=== PATIENT | female | born 1975 | race Caucasian/White ===

== ENCOUNTER 2021-02-16 18:22 | Emergency (ER) | payer OTHER, SELFPAY ==
--- NOTE | 2021-02-16 18:34 | ED.LOWEXIN ---
HPI - Extremity Injury (Lower) General Chief Complaint: Extremity Problem,Nontraumatic Stated Complaint: Left foot Swelling Time Seen by Provider: 02/16/21 18:34 Source: patient and RN notes reviewed Mode of arrival: ambulatory Limitations: no limitations History of Present Illness HPI Narrative: 45-year-old female presents to the [facility] with pain, swelling and redness to the dorsal and lateral aspect of her foot since Tuesday. Has recently been treated for gout. Recently had electrolyte imbalances, hyponatremia. Is currently being treated for A. fib and is due to have a procedure done in the next 2 weeks. States that she indication would like her foot fixed. Concern for infection, blood clot, edema. Had requested blood work to be done, explained we do not do blood work here. Related Data Home Medications Medication Instructions Recorded Confirmed sotalol 80 mg PO BID 06/21/19 06/21/19 Xarelto 20 mg PO HS 06/22/19 06/22/19 cyanocobalamin (vitamin B-12) 1,000 mcg SUBCUT DAILY 02/16/21 02/16/21 folic acid 1 mg PO DAILY 02/16/21 02/16/21 losartan 25 mg PO DAILY 02/16/21 02/16/21 metoprolol tartrate 50 mg PO DAILY 02/16/21 02/16/21 Allergies Allergy/AdvReac Type Severity Reaction Status Date / Time lisinopril Allergy Mild Other Verified 02/16/21 18:48 nifedipine Allergy Mild Hives / Verified 02/16/21 18:48 Red Face hydromorphone Allergy Unknown Hives / Verified 02/16/21 18:48 Red Face Review of Systems Review of Systems: All systems reviewed & are unremarkable except as noted in HPI and below Constitutional: Constitutional: Reports no additional constitutional complaints, Denies chills and Denies fever(s) Eyes: Eyes: Reports no additional eye complaints ENT: Reports system reviewed and no additional complaints, except as documented Cardiovascular: Cardiovascular: Reports no additional cardiovascular complaints and Denies chest pain Respiratory: Respiratory: Reports no additional respiratory complaints, Denies cough and Denies dyspnea Gastrointestinal: Gastrointestinal: Reports no additional gastrointestinal complaints, Denies nausea and Denies vomiting Musculoskeletal: Musculoskeletal: Reports joint swelling (Left lateral ankle extending into the lateral and dorsal foot) Integumentary/Breasts: Skin/Breast: Reports as per HPI, Denies pruritus and Denies rash Comments: Redness with increased warmth left foot Neurologic: Reports system reviewed and no additional complaints, except as documented, Denies headache(s), Denies numbness and Denies weakness Psychiatric: Psychiatric: Reports no additional psychiatric complaints Allergic/Immunologic: Allergic/Immunologic: Reports no additional allergic/immunologic complaints PMFSH Past Medical History Medical History (Updated 02/16/21 @ 19:10 by Patrizia Nicolas) A-fib Gout Hyponatremia Social History Social History Gender identity (if verbalized by the patient): Female Comments At the time of my signature, I reviewed and agree with the nursing past medical, surgical, social, and family history. There is no relevant family history pertinent to the patient complaint. Exam Const: General: alert Nutritional Appearance: well nourished Orientation/consciousness: patient oriented x3 Limitations: no limitations Other: Anxious, HENMT: Head: normal to inspection Eyes: Pupils: Equal, round and reactive pupils present Neck: Neck: normal visual inspection, no lymphadenopathy and no meningeal signs Chest: Chest palpation & inspection: normal inspection of the chest Resp: Effort & Inspection: normal respiratory effort and no use of accessory muscles Auscultation: clear to auscultation bilaterally, no crackles, no rales, no rhonchi and no wheezes Cardio: Rate: tachycardic Back/Spine/Pelvis: Back: no CVA tenderness Skin: Other: Red, warmth lateral dorsal foot left Neuro: General: patient orie
[2021-02-16 18:35] VITALS: BP 129/90; PULSE 118; RESP 18; TEMP 37.6; O2SAT 99
== END 2021-02-16 19:10 | disposition short-term general hospital (02) ==
PROVIDERS: Emergency Provider Nurse Practitioner
DX: M79.672 Pain in left foot (principal); I48.91 Unspecified atrial fibrillation; M10.9 Gout, unspecified; Z79.01 Long term (current) use of anticoagulants
CPT/HCPCS: 99212; G0463

== ENCOUNTER 2021-02-16 19:38 | Inpatient (IN) | payer OTHER, SELFPAY ==
--- NOTE | ~2021-02-16 | XR_ITS ---
EXAMINATION: XR chest 2V EXAM DATE: 02/16/2021 20:23 INDICATION: Tachycardia, atrial fibrillation. Foot swelling. History of gout. TECHNIQUE: Frontal and lateral projections of the chest obtained and reviewed. There is no prior melisa dy for comparison. FINDINGS: The lungs are clear. There are no pleural effusions. The cardiomediastinal silhouette is within normal limits. There is no pneumothorax suspected. The bones and soft tissues are unremarkab le. There are cholecystectomy clips. IMPRESSION: No acute cardiopulmonary findings. Reviewed, dictated and finalized at location A.
--- NOTE | ~2021-02-16 | XR_ITS ---
EXAMINATION: XR foot LT min 3V EXAM DATE: 02/16/2021 21:57 INDICATION: Left foot pain, redness, swelling. History of gout. TECHNIQUE: Left foot dorsoplantar, lateral and oblique projections obtained and reviewed. There is n o prior study for comparison. FINDINGS: Left metatarsal bones unremarkable. Small inferior calcaneal spur. There is small erosio n at the base of the left 1st distal phalanx identified on an oblique projection, could be gout. Ther e may be some swelling of this toe, clinical correlation. There is also suspected to be diffuse dorsa l foot swelling, mostly dorsally and laterally. Small inferior calcaneal spur. There are no acute fr actures identified. IMPRESSION: 1. Possible left 1st distal phalangeal base gouty erosion. 2. Diffuse foot swelling dorsolaterally Reviewed, dictated and finalized at location A.
[2021-02-16 20:02] VITALS: BP 133/66; PULSE 137; RESP 30; TEMP 37.2; O2SAT 100
--- NOTE | 2021-02-16 20:10 | ECG_ITS ---
Measurements Intervals [place] Rate: 142 P: MD: 0 QRS: 14 QRSD: 80 T: 79 QT: 297 QTc: 457 Interpretive Statements ATRIAL FIBRILLATION WITH RAPID VENTRICULAR RESPONSE BORDERLINE R WAVE PROGRESSION, ANTERIOR LEADS BORDERLINE ST-T WAVE ABNORMALITY- HIGH LATERAL LEADS BASELINE ARTIFACT- I, II, III, AVL, AVF ABNORMAL ECG Electronically Signed On 02-16-2021 20:20:25 CDT by Gian Kowalski D.O.
[2021-02-16 20:26] LABS: Basophils Percent Auto 0.2 % (0.2-1.2); Eosinophils Absolute Auto 0.1 K/mm3 (0-0.3); Eosinophils Percent Auto 0.7 % (0-4.4); Hematocrit 36.3 % (37.0-47.0); Hemoglobin 11.9 g/dL (12.0-15.0); Immature Granulocyte Absolute 0.05 K/mm3 (0.00-0.031); Immature Granulocyte Percent A 0.4 % (0-0.5); Lymphocytes Absolute Auto 1.16 K/mm3 (0.9-3.2); Mean Corpuscular HGB Conc 32.8 g/dl (32-36); Mean Corpuscular Hemoglobin 35.3 pg (26-34); Mean Corpuscular Volume 107.7 fl (80-100); Mean Platelet Volume 10.1 fl (7.4-10.4); Monocytes Absolute Auto 0.6 K/mm3 (0.1-0.6); Monocytes Percent Auto 4.6 % (2.6-8.5); Neutrophils Percent Auto 85.1 % (45.5-73.1); Platelet Count Result 352 k/mm3 (150-375); Red Blood Count 3.37 M/mm3 (4.2-5.4); Red Cell Distribution Width 15.4 % (11.5-14.5)
[2021-02-16 20:35] LABS: Anion Gap 9 mmol/L (8-16); Blood Urea Nitrogen 14 mg/dL (7-17); Calcium 9.3 mg/dL (8.4-10.2); Carbon Dioxide 24 mmol/L (22-30); Chloride 106 mmol/L (98-107); Estimated CRCL calculation 73 ml/min; Estimated Glomerular Filt Rate > 60; Glucose 185 mg/dL (65-110); Potassium 4.2 mmol/L (3.4-5.0); Sodium 139 mmol/L (137-145)
[2021-02-16 20:36] LABS: INR 1.6; Prothrombin Time 19.1 Seconds (11.1-14.7)
[2021-02-16 20:37] LABS: Partial Thromboplastin Time 39.9 SECONDS (22.3-36.8)
[2021-02-16 20:46] LABS: Troponin I < 0.012 ng/mL (0.000-0.034)
[2021-02-16 21:29] VITALS: BP 124/98; PULSE 118; RESP 26; TEMP 38.2; O2SAT 100
--- NOTE | 2021-02-16 21:38 | ED.GENADULT ---
HPI - General Adult General Chief complaint: Extremity Injury, Lower Stated complaint: left leg pain Time Seen by Provider: 02/16/21 21:27 Source: patient History of Present Illness HPI narrative: Patient is a 45 y/o female complaining of left foot pain starting 2 days ago. She describes her pain as throbbing and rates it as 7/10 currently. She state that weight bearing aggravates her pain. She denies any trauma to her foot. She also developed fever today. She has history gout. She also has history of A fib and she is on Xarelto. Related Data Home Medications Medication Instructions Recorded Confirmed sotalol 80 mg PO BID 06/21/19 02/16/21 Xarelto 20 mg PO HS 06/22/19 02/16/21 cyanocobalamin (vitamin B-12) 1,000 mcg SUBCUT DAILY 02/16/21 02/16/21 folic acid 1 mg PO DAILY 02/16/21 02/16/21 losartan 25 mg PO DAILY 02/16/21 02/16/21 metoprolol tartrate 50 mg PO DAILY 02/16/21 02/16/21 Allergies Allergy/AdvReac Type Severity Reaction Status Date / Time lisinopril Allergy Mild Hives Verified 02/16/21 20:09 nifedipine Allergy Mild Hives / Verified 02/16/21 18:48 Red Face hydromorphone Allergy Unknown Hives / Verified 02/16/21 18:48 Red Face Review of Systems Constitutional: Constitutional: Denies chills, Denies fever(s), Denies headache(s) and Denies weakness Eyes: Eyes: Denies blurry vision ENT: Denies headache(s) and Denies neck pain Cardiovascular: Cardiovascular: Denies chest pain and Denies dyspnea Respiratory: Respiratory: Denies cough and Denies dyspnea Gastrointestinal: Gastrointestinal: Denies abdominal pain, Denies diarrhea, Denies nausea and Denies vomiting Genitourinary: Genitourinary: Denies hematuria and Denies dysuria Musculoskeletal: Musculoskeletal: Denies back pain, Denies neck pain and Reports other (left foot pain) Integumentary/Breasts: Skin/Breast: Reports erythema (left foot) Neurologic: Denies headache(s) and Denies weakness PMFSH Past Medical History Medical History A-fib Gout Hyponatremia Social History Social History Gender identity (if verbalized by the patient): Female Exam Const: General: no acute distress and well developed Orientation/consciousness: oriented to person, oriented to place, oriented to time and patient oriented x3 HENMT: Head: normocephalic Ears: external ears normal General nose exam: Normal external nose present Eyes: General: appearance normal, both eyes and all related structures Conjunctivae: conjunctivae normal Neck: Neck: normal visual inspection and full ROM Chest: Chest palpation & inspection: normal inspection of the chest and no tenderness Resp: Effort & Inspection: normal respiratory effort Auscultation: clear to auscultation bilaterally Cardio: Rate: tachycardic Rhythm: abnormal rhythm regularly irregular GI: GI Palp: No abdominal tenderness and Yes Soft to palpation Skin: General skin exam: normal color, turgor normal and erythema (left foot) Neuro: General: oriented to person, oriented to place, oriented to time and patient oriented x3 Cognition (Neuro): normal cognition Extrem: General: normal to inspection, full ROM and no pedal edema Left lower extremity: foot Details: tenderness, warmth and edema Psych: Appearance: grossly normal Mental Status: mental status grossly normal Affect: normal affect Course Consultations Consultation #1: Discussed with Dr. Balderrama, who agrees to admit. Date: 02/16/21 Time: 21:51 Vital Signs Vital signs: Vital Signs Temperature 37.2 C 02/16/21 20:02 Pulse Rate 137 H 02/16/21 20:02 Respiratory Rate 30 H 02/16/21 20:02 Blood Pressure 133/66 02/16/21 20:02 Pulse Oximetry 100 02/16/21 20:02 Temperature 38.2 C H 02/16/21 21:29 Pulse Rate 125 H 02/16/21 23:36 Respiratory Rate 26 H 02/16/21 21:29 Blood Pressure 129/80 02/16/21 23:36 Pulse Oximetry 1
[2021-02-16] MEDS: KETOROLAC 30 MG/ML VIAL (*BKC) IV PUSH (22:15)
[2021-02-16] MEDS: dilTIAZem HCl INJ 25 MG/5 ML VIAL 10 MG IV PUSH (22:17)
[2021-02-16 22:20] LABS: Erythrocyte Sedimentation Rate 69 mm/hr (0-20)
[2021-02-16 22:28] LABS: Lactic Acid Reflex 0.9 mmol/L (0.7-2.1)
[2021-02-16] MEDS: ACETAMINOPHEN 325 MG TABLET 650 MG PO (22:30)
[2021-02-16] MEDS: COLCHICINE 0.6 MG TABLET 1.2 MG PO (22:31)
[2021-02-16 22:32] LABS: CRP 5.2 mg/dL (<1.0)
[2021-02-16 23:00] LABS: Uric Acid 8.3 mg/dL (2.5-7.5)
[2021-02-16 23:36] VITALS: BP 129/80; PULSE 125
[2021-02-16 23:51] LABS: Troponin I < 0.012 ng/mL (0.000-0.034)
[2021-02-17] VITALS (17 sets, daily range): BP systolic 98–114; BP diastolic 63–83; PULSE 72–128; RESP 16–18; TEMP 35.5–37.2; O2SAT 97–100; BMI 28.9
--- NOTE | 2021-02-17 | ECHO_ITS ---
Patient Info Name: Emma Andino Age: 45 years : 1975 Gender: Female Ht: 70 in Wt: 201 lbs BSA: 2.14 m2 HR: 87 bpm BP: 98 / 66 mmHg Heart Rhythm: Atrial Fibrillation Technical Quality: Good Exam Date: 02/17/2021 1:34 PM Exam Location: [facility] Patient Status: Outpatient Admit Date: 02/16/2021 Staff Ordering Physician: Eldon Balderrama MD Compliance Representative Dealer: Jerzy Castañeda, HARRY, RT Attending Provider: Eldon Balderrama MD Referring Physician: Conchis RUIZ; Exam Type: CA echo doppler color flow Study Info Indications I48.1 - Persistent atrial fibrillation Complete two-dimensional, color flow and Doppler transthoracic echocardiogram is performed. Summary 1. Complete two-dimensional, color flow and Doppler transthoracic echocardiogram is performed. 2. Left ventricular chamber dimension is normal. 3. Left ventricular systolic function is normal, estimated at >70%. 4. There is moderately increased left ventricular wall thickness. 5. Left atrial chamber dimension is moderately enlarged. 6. Right atrial chamber dimension is moderately enlarged. 7. There is mild tricuspid valve regurgitation. 8. Mild pulmonary hypertension, estimated pulmonary arterial systolic pressure is 37 mmHg. 9. Dilated inferior vena cava with <50% collapse upon inspiration consistent with elevated right atrial pressure, 10 mmHg. Left Ventricle Left ventricular chamber dimension is normal. Left ventricular systolic function is normal, estimated at >70%. There is moderately increased left ventricular wall thickness. The left ventricular diastolic function is indeterminate. Global longitudinal strain is mildly elevated at -15 %. Right Ventricle Right ventricular chamber dimension is normal. Right ventricular systolic function is normal. Left Atria Left atrial chamber dimension is moderately enlarged. Right Atria Right atrial chamber dimension is moderately enlarged. Aortic Valve The aortic valve is trileaflet. There is no aortic valve stenosis. There is trace aortic valve regurgitation. Pulmonic Valve The pulmonic valve is normal. There is trace pulmonic regurgitation. Mitral Valve The mitral valve has normal leaflets. There is mild mitral valve regurgitation. Tricuspid Valve The tricuspid valve leaflets are normal. There is mild tricuspid valve regurgitation. Mild pulmonary hypertension, estimated pulmonary arterial systolic pressure is 37 mmHg. Pericardium/Pleural The pericardium appears normal. There is trivial pericardial effusion. Inferior Vena Cava Dilated inferior vena cava with <50% collapse upon inspiration consistent with elevated right atrial pressure, 10 mmHg. Aorta The aortic root size at the sinus of Valsalva is normal. Left Ventricular Outflow Tract Name Value Normal LVOT 2D LVOT Diameter 2.1 cm LVOT Doppler LVOT Peak Gradient 4 mmHg LVOT Mean Gradient 2 mmHg LVOT VTI 19 cm LVOT VTI/AV VTI Ratio 0.7 LVOT Stroke Volume 67
--- NOTE | 2021-02-17 00:02 | PC.NURSE ---
Report received from YSED Cristina.
--- NOTE | 2021-02-17 00:42 | ADMGEN ---
This patient, Emma Andino, was admitted to IMU Room 203-01 02-17-21 at 0028. Patient/family oriented to hospital policies and general routines including ID bracelet, bed and alarms, visiting hours, pain management, procedures, bathroom and other care routines, personal items, smoking policy, room service/diet, and visiting hours. Information on how to activate the Rapid Response Team has been discussed. Patient/Family are encouraged to report perceived risks to care and to ask questions if they do not understand what they are told or what they should do.
--- NOTE | 2021-02-17 01:12 | PM.IMHP ---
H&P: HPI History of Present Illness Date/Time: 02/17/21 01:12 Chief Complaint: LEFT FOOT PAIN Narrative: THIS IS A 45-YEAR-OLD FEMALE WITH PAST MEDICAL HISTORY SIGNIFICANT FOR GOUT, ATRIAL FIBRILLATION. PATIENT PRESENTED TO THE EMERGENCY ROOM DUE TO REDNESS SWELLING AND PAIN OF THE LEFT FOOT A STATES THAT SHE HAD BEEN TREATED IN THE OUTPATIENT SETTING FOR TOE GOUT BUT NOW THE REDNESS AND SWELLING IS ON THE DORSUM OF HER FOOT WELL PAIN. SHE DENIES ANY TRAUMA TO THE FOOT SHE HAS HAD FEVERS BUT NO CHILLS OR RIGORS, NO NAUSEA NO VOMITING NO DIARRHEA NO ABDOMINAL PAIN NO PAIN OR BURNING WITH URINATION NO CHEST PAIN NO PND NO ORTHOPNEA NO LEG SWELLING BUT STATES THAT SHE FEELS REALLY FATIGUED. UPON ARRIVAL TO THE EMERGENCY ROOM SHE WAS FOUND TO HAVE A HEART RATE IN THE 170'S AND STATES THAT DOES HELP HER HEART RATE HAS BEEN LATELY SHE HAS BEEN SCHEDULED FOR CARDIOVERSION IN THE OUTPATIENT SETTING WITH DR. POLO. PRELIMINARY WORKUP WAS SIGNIFICANT FOR WBC OF 13,000, X-RAY OF THE FOOT WITH SIGNIFICANT SOFT TISSUE SWELLING OF THE DORSUM OF THE FOOT. Review of Systems Review of Systems: Narrative: LEFT FOOT SWELLING REDNESS AND PAIN Constitutional: Constitutional: Denies chills, Reports fatigue, Reports fever(s), Reports lethargy, Denies malaise and Denies weakness Eyes: Eyes: Denies change in vision ENT: Denies nasal congestion, Denies nasal discharge and Denies nasal obstruction Cardiovascular: Cardiovascular: Denies chest pain at rest, Denies syncope, Reports irregular heart rhythm, Denies radiating jaw, neck or arm pain, Reports palpitations, Denies dyspnea, Denies dyspnea on exertion, Denies orthopnea and Denies paroxysmal nocturnal dyspnea Respiratory: Respiratory: Denies cough and Denies wheezing Gastrointestinal: Gastrointestinal: Denies diarrhea, Denies nausea and Denies vomiting Genitourinary: Genitourinary: Denies dysuria Musculoskeletal: Musculoskeletal: Reports arthralgias ( LEFT FOOT) and Reports joint swelling Integumentary/Breasts: Skin/Breast: Reports system reviewed and no additional complaints, except as docu Neurologic: Reports system reviewed and no additional complaints, except as documented Psychiatric: Psychiatric: Reports no additional psychiatric complaints Endocrine: Endocrine: Reports no additional endocrine complaints Hematologic/Lymphatic: Hematologic/Lymphatic: Reports no additional hematologic/lymphatic complaints Allergic/Immunologic: Allergic/Immunologic: Reports no additional allergic/immunologic complaints [facility] Past Medical History Medical History A-fib Gout Hyponatremia Family History Family History (Updated 02/17/21 @ 01:01 by Stacy Lobo RN) Mother Ovarian cancer Heart disease Father Heart disease Hypertension Cerebrovascular accident Mother Hypertension Dementia Sibling Heart disease Hypertension ASVD (arteriosclerotic vascular disease) Social History Social History Smoking status: Never smoker Second hand tobacco smoke exposure: Yes Alcohol intake: former Substance use: never Gender identity (if verbalized by the patient): Female Spiritual care concerns: Yes (non-denomination from Buddhism descent) Meds Home Medications and Allergies Home Medications Medication Instructions Recorded Confirmed Type sotalol 80 mg PO BID 06/21/19 02/17/21 History Xarelto 20 mg PO HS 06/22/19 02/17/21 History cyanocobalamin (vitamin B-12) 1,000 mcg SUBCUT MONTHLY 02/16/21 02/17/21 History folic acid 1 mg PO DAILY 02/16/21 02/17/21 History losartan 25 mg PO DAILY 02/16/21 02/17/21 History acetaminophen [Tylenol] 650 mg PO ONCE PRN 02/17/21 02/17/21 History cyanocobalamin (vitamin B-12) 5,000 mcg SUBLINGUAL BID 02/17/21 02/17/21 History [Vitamin B-12] [id number] [A 1 tablet PO DAILY 02/17/21 02/17/21 History Thru [facility]
[2021-02-17] MEDS: methylPREDNISolone SOD SUCC 40 MG VIAL IV PUSH (01:38)
[2021-02-17 02:31] LABS: Basophils Percent Auto 0.2 % (0.2-1.2); Eosinophils Absolute Auto 0.1 K/mm3 (0-0.3); Eosinophils Percent Auto 0.6 % (0-4.4); Hematocrit 30.4 % (37.0-47.0); Hemoglobin 10.2 g/dL (12.0-15.0); Immature Granulocyte Absolute 0.03 K/mm3 (0.00-0.031); Immature Granulocyte Percent A 0.3 % (0-0.5); Lymphocytes Absolute Auto 1.41 K/mm3 (0.9-3.2); Lymphocytes Percent Auto 13.5 % (18.3-44.2); Mean Corpuscular HGB Conc 33.6 g/dl (32-36); Mean Corpuscular Hemoglobin 35.1 pg (26-34); Mean Corpuscular Volume 104.5 fl (80-100); Mean Platelet Volume 10.1 fl (7.4-10.4); Monocytes Absolute Auto 0.8 K/mm3 (0.1-0.6); Monocytes Percent Auto 7.3 % (2.6-8.5); Neutrophils Absolute Auto 8.2 K/mm3 (1.3-6.7); Neutrophils Percent Auto 78.1 % (45.5-73.1); Platelet Count Result 268 k/mm3 (150-375); Red Blood Count 2.91 M/mm3 (4.2-5.4); Red Cell Distribution Width 15.4 % (11.5-14.5); White Blood Count 10.5 K/mm3 (4.5-10.0)
[2021-02-17 03:00] LABS: Troponin I < 0.012 ng/mL (0.000-0.034)
[2021-02-17] MEDS: CLINDAMYCIN 900 MG/D5W 50 ML 900 MG/50 ML PIGGYBACK 50 MG IVPB ×3 (03:01→21:36)
[2021-02-17] MEDS: ACETAMINOPHEN 325 MG TABLET 650 MG PO ×3 (03:01→20:03)
[2021-02-17] MEDS: FOLIC ACID 1 MG TABLET PO (10:05)
[2021-02-17] MEDS: CYANOCOBALAMIN 1,000 MCG TABLET 5000 MCG BY MOUTH ×2 (10:05→17:39)
[2021-02-17] MEDS: LOSARTAN POTASSIUM 25 MG TABLET PO (10:06)
[2021-02-17] MEDS: MULTIVITAMINS /C LUTEIN (CENTRUM SILVER) TABLET *BKC 1 TAB PO (10:06)
[2021-02-17] MEDS: SOTALOL HCL 80 MG TABLET PO ×2 (10:07→17:39)
--- NOTE | 2021-02-17 19:13 | PM.IMPN ---
Progress Note: A&P Assessment and Plan (1) Atrial fibrillation with rapid ventricular response: Code(s): I48.91 - Unspecified atrial fibrillation Status: Acute Assessment and Plan: ADMIT TO IMU VITALS PER UNIT PROTOCOL CONTINUES TELEMETRY HEART HEALTHY DIET BED REST WITH BATHROOM PRIVILEGES DILTIAZEM DRIP RESTART SOTALOL CARDIOLOGY CONSULT ECHOCARDIOGRAM IN A.M. (2) Cellulitis of foot, left: Code(s): L03.116 - Cellulitis of left lower limb Status: Acute Assessment and Plan: RECEIVED ROCEPHIN AND VANCOMYCIN IN THE EMERGENCY ROOM STARTED CLINDAMYCIN BLOOD CULTURES IN PROGRESS (3) Gout: Qualifiers: Chronicity: unspecified Gout etiology: unspecified cause Gout site: foot Laterality: left Qualified Code(s): M10.9 - Gout, unspecified Code(s): M10.9 - Gout, unspecified Status: Acute Assessment and Plan: APPEARS TO HAVE RESOLVED CONTINUE TO MONITOR (4) Sepsis: Qualifiers: Sepsis acute organ dysfunction status: unspecified Sepsis type: sepsis due to unspecified organism Qualified Code(s): A41.9 - Sepsis, unspecified organism Code(s): A41.9 - Sepsis, unspecified organism Status: Acute Assessment and Plan: RULED OUT SYSTEMIC INFLAMMATORY RESPONSE SYNDROME MORE APPROPRIATE Subjective Date/time seen: 02/17/21 19:13 I agree with current A/P; will continue to monitor Objective Data Vital Signs Vital Signs: Vital Signs - 24 hr 02/16/21 20:02 02/16/21 21:29 02/16/21 23:36 Temperature 37.2 C 38.2 C H Pulse Rate 137 H 118 H 125 H Respiratory Rate 30 H 26 H Blood Pressure 133/66 124/98 H 129/80 Pulse Oximetry 100 100 02/17/21 00:30 02/17/21 00:39 02/17/21 01:00 Temperature 36.5 C Pulse Rate 113 H 112 H 87 Respiratory Rate 18 Blood Pressure 114/79 98/66 L Pulse Oximetry 99 02/17/21 02:00 02/17/21 04:00 02/17/21 06:00 Temperature 36.2 C L Pulse Rate 115 H 87 72 Respiratory Rate 18 Blood Pressure 98/66 L Pulse Oximetry 99 02/17/21 08:00 02/17/21 10:00 02/17/21 10:07 Temperature 35.5 C L Pulse Rate 128 H 122 H 99 Respiratory Rate 16 Blood Pressure 114/83 Pulse Oximetry 99 02/17/21 12:00 02/17/21 14:00 02/17/21 16:00 Temperature 35.7 C L 35.7 C L Pulse Rate 86 80 88 Respiratory Rate 18 16 Blood Pressure 114/82 106/77 Pulse Oximetry 100 98 02/17/21 17:39 02/17/21 18:00 Temperature Pulse Rate 103 H 93 Respiratory Rate Blood Pressure Pulse Oximetry Intake/Output Intake/Output: Intake & Output 02/14/21 02/15/21 02/16/21 02/17/21 23:59 23:59 23:59 23:59 Intake Total 300 1280.0 Output Total 2050 Balance 300 -770.0 Meds/Results Medications: Active Medications Generic Name Dose Route Start Last Admin Trade Name Freq PRN Reason Stop Dose Admin Acetaminophen 650 mg 02/17/21 02:17 02/17/21 12:02 Acetaminophen 325 Mg Tablet PO 650 mg BID PRN Administration Pain Rated 1-3 Cyanocobalamin 1,000 mcg 03/19/21 09:00 Cyanocobalamin Inj 1,000 Mcg/Ml Vial SUB-Q MONTHLY DI Cyanocobalamin 5,000 mcg 02/17/21 09:00 02/17/21 17:39 Cyanocobalamin 1,000 Mcg Tablet BY MOUTH 5,000 mcg BID DI Administration Folic Acid 1 mg 02/17/21 09:00 02/17/21 10:05 Folic Acid 1 Mg Tablet PO 1 mg DAILY DI Administration Clindamycin Phosphate 900 mg in 50 mls @ 50 mls/hr 02/17/21 12:00 02/17/21 13:00 Cleocin 900 Mg/D5w 50 Ml IVPB Infused Q8HR DI Infusion Diltiazem HCl 100 mg in 100 mls @ 5 mls/hr 02/17/21 19:00 Cardizem 100 Mg/D5w 100 Ml IV CONT .Q20H DI 5 MG/HR Losartan Potassium 25 mg 02/17/21 09:00 02/17/21 10:06 Losartan Potassium 25 Mg Tablet PO 25 mg DAILY DI Administration Multivitamins/Minerals 1 tab 02/17/21 09:00 02/17/21 10:06 Multivitamins /C Lutein (Centrum Silver) Tablet *Bkc PO 1 tab DAILY DI Administration Rivaroxaba
[2021-02-17] MEDS: RIVAROXABAN 20 MG TABLET PO (20:04)
[2021-02-18] VITALS (15 sets, daily range): BP systolic 106–126; BP diastolic 73–92; PULSE 40–120; RESP 16–20; TEMP 35.8–37.1; O2SAT 92–100
[2021-02-18 05:26] LABS: Basophils Percent Auto 0.1 % (0.2-1.2); Eosinophils Percent Auto 0.1 % (0-4.4); Hematocrit 30.1 % (37.0-47.0); Hemoglobin 9.8 g/dL (12.0-15.0); Immature Granulocyte Absolute 0.06 K/mm3 (0.00-0.031); Immature Granulocyte Percent A 0.4 % (0-0.5); Lymphocytes Percent Auto 10.4 % (18.3-44.2); Mean Corpuscular HGB Conc 32.6 g/dl (32-36); Mean Corpuscular Volume 107.5 fl (80-100); Mean Platelet Volume 10.6 fl (7.4-10.4); Monocytes Absolute Auto 0.7 K/mm3 (0.1-0.6); Monocytes Percent Auto 4.8 % (2.6-8.5); Neutrophils Absolute Auto 11.3 K/mm3 (1.3-6.7); Neutrophils Percent Auto 84.2 % (45.5-73.1); Platelet Count Result 279 k/mm3 (150-375); Red Cell Distribution Width 15.3 % (11.5-14.5); White Blood Count 13.5 K/mm3 (4.5-10.0)
[2021-02-18] MEDS: CLINDAMYCIN 900 MG/D5W 50 ML 900 MG/50 ML PIGGYBACK 50 MG IVPB ×3 (06:15→21:01)
[2021-02-18] MEDS: ACETAMINOPHEN 325 MG TABLET 650 MG PO ×2 (06:17→14:39)
[2021-02-18] MEDS: CYANOCOBALAMIN 1,000 MCG TABLET 5000 MCG BY MOUTH ×2 (09:41→17:46)
[2021-02-18] MEDS: LOSARTAN POTASSIUM 25 MG TABLET PO (09:42)
[2021-02-18] MEDS: FOLIC ACID 1 MG TABLET PO (09:42)
[2021-02-18] MEDS: MULTIVITAMINS /C LUTEIN (CENTRUM SILVER) TABLET *BKC 1 TAB PO (09:42)
[2021-02-18] MEDS: SOTALOL HCL 80 MG TABLET PO (09:57)
--- NOTE | 2021-02-18 10:11 | PM.CNCAR ---
Assessment and Plan Assessment and plan (1) Atrial fibrillation with rapid ventricular response: Code(s): I48.91 - Unspecified atrial fibrillation Status: Acute Assessment and Plan: -Persistent, highly symptomatic atrial fibrillation with rapid ventricular response despite sotalol 80 mg twice daily and diltiazem infusion 5 milligrams/hour. -Increase sotalol to 120 mg twice daily. -Discontinue diltiazem if bradycardia noted but will continue and plan to stop at CV (no indication for HELEN guidance as pt has been on A/C for 30 days without interruption). -Repeat 12 lead EKG, monitor QTc interval. -Continue Xarelto 20 mg at bedtime. CHADS2 Vasc score 2. Systemic anticoagulation indicated. -Check BMP -Counseled at length to avoid alcohol, excessive free water intake given severe symptomatic hyponatremia last month. - Plan for elective cardioversion tomorrow morning. NPO after midnight. Unfortunately, pt hais already eaten and drinking water throughout the morning. She understands and agrees. discussed plan of care with Dr. Gonzales who agrees with the above. We discussed risks, benefits, alternatives cardioversion including but not limited to stroke, hypotension, failure to cardiovert, aspiration. do not hold anticoagulation Or sotalol prior to cardioversion. (2) Hypertension: Code(s): I10 - Essential (primary) hypertension Status: Acute Assessment and Plan: BP control. Continue losartan. (3) LVH (left ventricular hypertrophy): Code(s): I51.7 - Cardiomegaly Status: Acute Assessment and Plan: Moderate LVH by echo, preserved LV systolic function EF 60%. 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 Patient has been compliant for least 30 days as noted above. No bleeding. Follow H&H. Hemoglobin has declined over the past 48 hours. No evidence or signs of bleeding clinically. Repeat CBC in a.m.. (5) Cellulitis of foot, left: Code(s): L03.116 - Cellulitis of left lower limb Status: Acute Assessment and Plan: Per primary service. IV antibiotics transitioning to oral per their direction. History of Present Illness History of Present Illness Consult date/time: Date of service:02/18/21 10:11 Cardiology consultation at the request of Dr. Ruiz of the [facility] service for opinion regarding atrial fibrillation with rapid ventricular response. Requesting physician: Debra Ruiz, EGG PRODUCER-[employer]avier Consult reason: atrial fibrillation Reason For Visit: A FIB w/RVR, Left foot cellulitis Narrative: patient is a 45-year-old female with a past medical history significant for paroxysmal atrial fibrillation, hypertension, obesity, history of alcohol dependence presented to the emergency department on 02/16/2021 due to redness, swelling and pain of the left foot for which she had been treated for gout as an outpatient without significant improvement. Patient was started on IV antibiotics and is feeling better. She was noted be in atrial fibrillation with rapid ventricular response up to the 170s initially improved on diltiazem infusion 5 milligrams/hour and continuation of sotalol 80 mg twice daily. Patient has been compliant with Xarelto 20 mg daily. She denies bleeding, chest pain. She has been very fatigued and she has always been aware of her atrial fibrillation. She complains of palpitations, racing heart, shortness of breath related to her atrial fibrillation which she states has been present for approximately 1 month. 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 Patient admits to drinking excessive alcohol and has quit completely January 18 of this year. She denies lower extremity edema orth
--- NOTE | 2021-02-18 10:28 | ECG_ITS ---
Measurements Intervals [place] Rate: 104 P: [place]: 0 QRS: 48 QRSD: 86 T: 77 QT: 374 QTc: 494 Interpretive Statements ATRIAL FIBRILLATION WITH RAPID VENTRICULAR RESPONSE BORDERLINE R WAVE PROGRESSION, ANTERIOR LEADS BORDERLINE ST-T WAVE ABNORMALITY- HIGH LATERAL LEADS ABNORMAL ECG Electronically Signed On 02-18-2021 11:42:02 CDT by Gian Kowalski D.O.
--- NOTE | 2021-02-18 10:57 | PM.IMPN ---
Progress Note: A&P Assessment and Plan (1) Atrial fibrillation with rapid ventricular response: Code(s): I48.91 - Unspecified atrial fibrillation Status: Acute Assessment and Plan: ADMIT TO IMU VITALS PER UNIT PROTOCOL TELEMETRY monitoring HEART HEALTHY DIET BED REST WITH BATHROOM PRIVILEGES Continue DILTIAZEM DRIP per cards SOTALOL increased per cards CARDIOLOGY following recommendations appreciated Cardioversion in a.m. (2) Cellulitis of foot, left: Code(s): L03.116 - Cellulitis of left lower limb Status: Acute Assessment and Plan: S/p ROCEPHIN AND VANCOMYCIN IN THE EMERGENCY ROOM Continue with CLINDAMYCIN Follow BC (3) Gout: Qualifiers: Chronicity: unspecified Gout etiology: unspecified cause Gout site: foot Laterality: left Qualified Code(s): M10.9 - Gout, unspecified Code(s): M10.9 - Gout, unspecified Status: Acute Assessment and Plan: APPEARS TO HAVE RESOLVED CONTINUE TO MONITOR (4) Sepsis: Qualifiers: Sepsis acute organ dysfunction status: unspecified Sepsis type: sepsis due to unspecified organism Qualified Code(s): A41.9 - Sepsis, unspecified organism Code(s): A41.9 - Sepsis, unspecified organism Status: Acute Assessment and Plan: RULED OUT SYSTEMIC INFLAMMATORY RESPONSE SYNDROME MORE APPROPRIATE Subjective Date/time seen: 02/18/21 10:57 Pt seem and evaluated; WBC elevated; continues w/ afib; denies any CP or SOB Review of Systems Review of Systems: All systems reviewed & are unremarkable except as noted in HPI and below Exam Const: General: no acute distress, alert and awake Orientation/consciousness: patient oriented x3 HENMT: Head: normocephalic and atraumatic Ears: hearing grossly normal bilaterally and external ears normal Face and sinus: face symmetric Mouth: Yes Normal oral and palatal mucosa present Eyes: Pupils: Equal, round and reactive pupils present EOM: EOMs intact bilaterally Neck: Neck: full ROM, trachea midline and no JVD Thyroid: thyroid normal Chest: Chest palpation & inspection: normal inspection of the chest Resp: Effort & Inspection: normal respiratory effort Auscultation: clear to auscultation bilaterally Cardio: Jugular venous distension: no JVD Rate: regular rate and other Rhythm: abnormal rhythm irregularly irregular Other: afib GI: Inspection: normal to inspection GI Palp: Yes Soft to palpation Percussion: Yes normal to percussion Auscultation: normal bowel sounds : General: Yes no CVA tenderness Back/Spine/Pelvis: Back: no CVA tenderness Skin: General skin exam: normal color Rashes: no rashes Neuro: General: patient oriented x3 and CN's II-XI intact bilaterally Cranial nerves: Yes Equal, round and reactive pupils present Speech: normal speech Psych: Appearance: grossly normal Affect: normal affect Judgement: Good judgement present (Psych) Objective Data Vital Signs Vital Signs: Vital Signs - 24 hr 02/17/21 12:00 02/17/21 14:00 02/17/21 16:00 Temperature 35.7 C L 35.7 C L Pulse Rate 86 80 88 Respiratory Rate 18 16 Blood Pressure 114/82 106/77 Pulse Oximetry 100 98 02/17/21 17:39 02/17/21 18:00 02/17/21 20:00 Temperature 37.2 C Pulse Rate 103 H 93 101 H Respiratory Rate 17 Blood Pressure 112/63 Pulse Oximetry 97 02/17/21 20:06 02/17/21 22:00 02/18/21 00:00 Temperature 37.1 C Pulse Rate 93 94 97 Respiratory Rate 18 Blood Pressure 106/77 106/74 Pulse Oximetry 99 02/18/21 02:00 02/18/21 04:00 02/18/21 06:00 Temperature 37.1 C Pulse Rate 99 100 102 H Respiratory Rate 17 Blood Pressure 112/77 Pulse Oximetry 98 02/18/21 08:00 02/18/21 09:57 Temperature 36.9 C Pulse Rate 95 96 Respiratory Rate 20 Blood Pressure 113/73 Pulse Oximetry 99 Intake/Output Intake/Output: Intake & Output 02/15/21 02/16/21 02/17/21 02/18/21 23:59 23:59 23:59 23:59 Intake To
[2021-02-18] MEDS: SOTALOL HCL 40 MG TABLET PO (11:48)
[2021-02-18 11:56] LABS: Anion Gap 10 mmol/L (8-16); Blood Urea Nitrogen 18 mg/dL (7-17); Calcium 9.2 mg/dL (8.4-10.2); Carbon Dioxide 23 mmol/L (22-30); Chloride 105 mmol/L (98-107); Estimated CRCL calculation 93 ml/min; Estimated Glomerular Filt Rate > 60; Glucose 88 mg/dL (65-110); Potassium 3.7 mmol/L (3.4-5.0); Sodium 138 mmol/L (137-145)
[2021-02-18 17:45] LABS: Anion Gap 12 mmol/L (8-16); Blood Urea Nitrogen 21 mg/dL (7-17); Calcium 9.4 mg/dL (8.4-10.2); Carbon Dioxide 23 mmol/L (22-30); Chloride 104 mmol/L (98-107); Estimated CRCL calculation 83 ml/min; Estimated Glomerular Filt Rate > 60; Glucose 75 mg/dL (65-110); Potassium 3.9 mmol/L (3.4-5.0); Sodium 139 mmol/L (137-145)
[2021-02-18 18:00] LABS: Hemoglobin A1C 4.9 % (<5.7)
[2021-02-18] MEDS: SOTALOL HCL 40 MG TABLET 120 MG PO (20:49)
[2021-02-18] MEDS: RIVAROXABAN 20 MG TABLET PO (20:49)
[2021-02-19] VITALS (24 sets, daily range): BP systolic 77–121; BP diastolic 54–91; PULSE 55–124; RESP 13–20; TEMP 35.9–37.1; O2SAT 73–100
[2021-02-19] MEDS: ACETAMINOPHEN 325 MG TABLET 650 MG PO ×3 (00:16→16:18)
[2021-02-19] MEDS: CLINDAMYCIN 900 MG/D5W 50 ML 900 MG/50 ML PIGGYBACK 50 MG IVPB ×3 (05:05→22:37)
--- NOTE | 2021-02-19 07:16 | ECG_ITS ---
Measurements Intervals [place] Rate: 81 P: [place]: 0 QRS: 70 QRSD: 84 T: 73 QT: 413 QTc: 480 Interpretive Statements ATRIAL FIBRILLATION ABNORMAL ECG Electronically Signed On 02-19-2021 7:53:47 CDT by Gian Kowalski D.O.
[2021-02-19] MEDS: CYANOCOBALAMIN 1,000 MCG TABLET 5000 MCG BY MOUTH ×2 (08:27→16:14)
[2021-02-19] MEDS: FOLIC ACID 1 MG TABLET PO (08:27)
[2021-02-19] MEDS: MULTIVITAMINS /C LUTEIN (CENTRUM SILVER) TABLET *BKC 1 TAB PO (08:27)
[2021-02-19] MEDS: LOSARTAN POTASSIUM 25 MG TABLET PO (08:28)
[2021-02-19] MEDS: SOTALOL HCL 40 MG TABLET 120 MG PO (08:29)
--- NOTE | 2021-02-19 08:35 | PM.IMPN ---
Progress Note: A&P Assessment and Plan (1) Atrial fibrillation with rapid ventricular response: Code(s): I48.91 - Unspecified atrial fibrillation Status: Acute Assessment and Plan: ADMIT TO IMU VITALS PER UNIT PROTOCOL TELEMETRY monitoring NPO for cardioversion BED REST WITH BATHROOM PRIVILEGES Continue DILTIAZEM DRIP per cards SOTALOL increased per cards CARDIOLOGY following recommendations appreciated Cardioversion in a.m. (2) Cellulitis of foot, left: Code(s): L03.116 - Cellulitis of left lower limb Status: Acute Assessment and Plan: S/p ROCEPHIN AND VANCOMYCIN IN THE EMERGENCY ROOM Continue with CLINDAMYCIN BC NGTD (3) Gout: Qualifiers: Chronicity: unspecified Gout etiology: unspecified cause Gout site: foot Laterality: left Qualified Code(s): M10.9 - Gout, unspecified Code(s): M10.9 - Gout, unspecified Status: Acute Assessment and Plan: APPEARS TO HAVE RESOLVED CONTINUE TO MONITOR (4) Sepsis: Qualifiers: Sepsis acute organ dysfunction status: unspecified Sepsis type: sepsis due to unspecified organism Qualified Code(s): A41.9 - Sepsis, unspecified organism Code(s): A41.9 - Sepsis, unspecified organism Status: Acute Assessment and Plan: RULED OUT SYSTEMIC INFLAMMATORY RESPONSE SYNDROME MORE APPROPRIATE Subjective Date/time seen: 02/19/21 08:35 pt reports some feeling lightheaded with sudden change in position; denied any SOB or CP; does have pain in left foot Review of Systems Review of Systems: All systems reviewed & are unremarkable except as noted in HPI and below Exam Const: General: no acute distress, alert and awake Orientation/consciousness: patient oriented x3 HENMT: Head: normocephalic and atraumatic Ears: hearing grossly normal bilaterally and external ears normal Face and sinus: face symmetric Mouth: Yes Normal oral and palatal mucosa present Eyes: Pupils: Equal, round and reactive pupils present EOM: EOMs intact bilaterally Neck: Neck: full ROM, trachea midline and no JVD Thyroid: thyroid normal Chest: Chest palpation & inspection: normal inspection of the chest Resp: Effort & Inspection: normal respiratory effort Auscultation: clear to auscultation bilaterally Cardio: Jugular venous distension: no JVD Rate: regular rate and other Rhythm: regular rhythm and abnormal rhythm irregularly irregular Heart sounds: S1 normal heart sound present and S2 normal heart sound present Other: afib GI: Inspection: normal to inspection GI Palp: Yes Soft to palpation Percussion: Yes normal to percussion Auscultation: normal bowel sounds : General: Yes no CVA tenderness Back/Spine/Pelvis: Back: no CVA tenderness Skin: General skin exam: normal color Rashes: no rashes Neuro: General: patient oriented x3 and CN's II-XI intact bilaterally Cranial nerves: Yes Equal, round and reactive pupils present Speech: normal speech Psych: Appearance: grossly normal Affect: normal affect Judgement: Good judgement present (Psych) Objective Data Vital Signs Vital Signs: Vital Signs - 24 hr 02/18/21 09:57 02/18/21 10:00 02/18/21 11:48 Temperature Pulse Rate 96 96 108 H Respiratory Rate Blood Pressure Pulse Oximetry 02/18/21 12:00 02/18/21 13:55 02/18/21 14:00 Temperature 36.6 C Pulse Rate 40 L 119 H Respiratory Rate 16 Blood Pressure 126/83 Pulse Oximetry 100 92 02/18/21 16:00 02/18/21 18:00 02/18/21 20:00 Temperature 36.6 C 35.8 C L Pulse Rate 95 101 H 120 H Respiratory Rate 16 19 Blood Pressure 110/73 125/92 H Pulse Oximetry 98 99 02/18/21 22:00 02/19/21 00:00 02/19/21 02:00 Temperature 36.7 C Pulse Rate 101 H 98 87 Respiratory Rate 19 Blood Pressure 104/67 Pulse Oximetry 100 02/19/21 04:00 02/19/21 06:00 02/19/21 08:29 Temperature 36.4 C Pulse Rate 95 77 124 H Respiratory Rate 18 Blood Pressure 121/9
--- NOTE | 2021-02-19 11:08 | PM.PNCARD ---
Progress Note: A&P Assessment and Plan (1) Atrial fibrillation with rapid ventricular response: Code(s): I48.91 - Unspecified atrial fibrillation <SARAH Merirll - Last Filed: 02/19/21 11:48> Status: Acute <SARAH Merrill - Last Filed: 02/19/21 11:48> Assessment and Plan: -Persistent, highly symptomatic atrial fibrillation with rapid ventricular response despite sotalol 80 mg twice daily and diltiazem infusion 5 milligrams/hour. -Increase sotalol to 120 mg twice daily. -Discontinue diltiazem if bradycardia noted but will continue and plan to stop at CV (no indication for HELEN guidance as pt has been on A/C for 30 days without interruption). -Daily EKG, monitor QTc interval. -Continue Xarelto 20 mg at bedtime. CHADS2 Vasc score 2. Systemic anticoagulation indicated. <SARAH Merrill - Last Filed: 02/19/21 11:48> (2) Hypertension: Code(s): I10 - Essential (primary) hypertension <INDIO MerrillC - Last Filed: 02/19/21 11:48> Status: Acute <SARAH Merrill - Last Filed: 02/19/21 11:48> Assessment and Plan: BP control. Continue losartan. <SARAH Merrill - Last Filed: 02/19/21 11:48> (3) LVH (left ventricular hypertrophy): Code(s): I51.7 - Cardiomegaly <INDIO MerrillC - Last Filed: 02/19/21 11:48> Status: Acute <SARAH Merrill - Last Filed: 02/19/21 11:48> Assessment and Plan: Moderate LVH by echo, preserved LV systolic function EF 60%. 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 Patient has been compliant for least 30 days as noted above. No bleeding. Follow H&H. Hemoglobin downtrending. No evidence or signs of bleeding clinically. Repeat CBC now. <SARAH Merrill - Last Filed: 02/19/21 11:48> (5) Cellulitis of foot, left: Code(s): L03.116 - Cellulitis of left lower limb <SARAH Merrill - Last Filed: 02/19/21 11:48> Status: Acute <SARAH Merrill - Last Filed: 02/19/21 11:48> Assessment and Plan: Per primary service. IV antibiotics transitioning to oral per their direction. <SARAH Merrill - Last Filed: 02/19/21 11:48> Additional Plan I HAVE SEEN AND EXAMINED THE PATIENT AND AGREE WITH THE ASSESSMENT AND PLAN OF THE NURSE PRACTITIONER.PATIENT HAD CARDIOVERSION TODAY SUCCESSFULLY. WILL START DILTIAZEM 30 MG TID AND REDUCE SOTALOL TO 80 MG BID BECAUSE QTC POST CARDIOVERSION WAS 480. PATIENT TO GET EKG TONIGHT BEFORE ADMINISTERING SOTALOL AND NURSE TO PAGE THE [facility] WELD TECHNICIAN FOR DIRECTIONS. CONTINUE XARELTO <Ismael Uribe MD - Last Filed: 02/19/21 23:04> Subjective Date/time seen: 02/19/21 11:00 Cardiology follow up for atrial fibrillation Date of service 02/19/2021: Says she feels about the same. Reports that she became light headed this morning after she bent over to get her call button from the floor. She denies shortness of breath, denies palpitations. She remains in atrial fibrillation, rate controlled on sotalol. Plan for DC cardioversion today. <SARAH Merrill - Last Filed: 02/19/21 11:48> Review of Systems Review of Systems: All systems reviewed & are unremarkable except as noted in HPI and below <SARAH Merrill - Last Filed: 02/19/21 11:48> Constitutional: Constitutional: Reports as per HPI, Reports no additional constitutional complaints, Denies chills, Reports fatigue and Reports weakness <SARAH Merrill - Last Filed: 02/19/21 11:48> Eyes: Eyes: Reports as per HPI and Reports no additional eye complaints <SARAH Merrill - L
--- NOTE | 2021-02-19 11:13 | ECG_ITS ---
Measurements Intervals [place] Rate: 75 P: [place]: 0 QRS: 62 QRSD: 84 T: 68 QT: 442 QTc: 494 Interpretive Statements ATRIAL FIBRILLATION BORDERLINE R WAVE PROGRESSION, ANTERIOR LEADS ABNORMAL ECG Electronically Signed On 02-19-2021 11:49:01 CDT by Gian Kowalski D.O.
[2021-02-19 12:28] LABS: Hematocrit 33.1 % (37.0-47.0); Hemoglobin 10.5 g/dL (12.0-15.0); Mean Corpuscular HGB Conc 31.7 g/dl (32-36); Mean Corpuscular Hemoglobin 33.7 pg (26-34); Mean Corpuscular Volume 106.1 fl (80-100); Mean Platelet Volume 10.3 fl (7.4-10.4); Platelet Count Result 324 k/mm3 (150-375); Red Blood Count 3.12 M/mm3 (4.2-5.4); Red Cell Distribution Width 15.7 % (11.5-14.5); White Blood Count 8.4 K/mm3 (4.5-10.0)
--- NOTE | 2021-02-19 13:00 | ECG_ITS ---
Measurements Intervals [place] Rate: 54 P: 32 DC: 185 QRS: 24 QRSD: 85 T: 64 QT: 493 QTc: 471 Interpretive Statements SINUS BRADYCARDIA LOW QRS VOLTAGE IN PRECORDIAL LEADS CANNOT RULE OUT SEPTAL INFARCT, AGE INDETERMINATE ST-T WAVE ABNORMALITY IN HIGH LATERAL LEADS- CONSIDER ISCHEMIA BASELINE ARTIFACT- I, III, V2, V4-V6 ABNORMAL ECG Electronically Signed On 02-19-2021 13:10:41 CDT by Gian Kowalski D.O.
--- NOTE | 2021-02-19 13:01 | WPDMODSED ---
Moderate Sedation Note-Pt Data Patient Data Allergies Allergy/AdvReac Type Severity Reaction Status Date / Time lisinopril Allergy Mild Hives Verified 02/16/21 20:09 nifedipine Allergy Mild Hives / Verified 02/16/21 18:48 [place] hydromorphone Allergy Unknown Hives / Verified 02/16/21 18:48 Red Face Home Medications Medication Instructions Recorded Confirmed Type sotalol 80 mg PO BID 06/21/19 02/17/21 History Xarelto 20 mg PO HS 06/22/19 02/17/21 History cyanocobalamin (vitamin B-12) 1,000 mcg SUBCUT MONTHLY 02/16/21 02/17/21 History folic acid 1 mg PO DAILY 02/16/21 02/17/21 History losartan 25 mg PO DAILY 02/16/21 02/17/21 History acetaminophen [Tylenol] 650 mg PO ONCE PRN 02/17/21 02/17/21 History cyanocobalamin (vitamin B-12) 5,000 mcg SUBLINGUAL BID 02/17/21 02/17/21 History [Vitamin B-12] [id number] [A 1 tablet PO DAILY 02/17/21 02/17/21 History Thru [facility]] Current Medications: Active Medications Acetaminophen (Acetaminophen 325 Mg Tablet) 650 mg PO Q6-8H PRN PRN Reason: Pain Rated 1-3 Last Admin: 02/19/21 08:28 Dose: 650 mg Documented by: Cyanocobalamin (Cyanocobalamin Inj 1,000 Mcg/Ml Vial) 1,000 mcg SUB-Q MONTHLY [facility] Cyanocobalamin (Cyanocobalamin 1,000 Mcg Tablet) 5,000 mcg BY MOUTH BID [facility] Last Admin: 02/19/21 08:27 Dose: 5,000 mcg Documented by: Folic Acid (Folic Acid 1 Mg Tablet) 1 mg PO DAILY [facility] Last Admin: 02/19/21 08:27 Dose: 1 mg Documented by: Clindamycin Phosphate (Cleocin 900 Mg/D5w 50 Ml) 900 mg in 50 mls @ 50 mls/hr IVPB Q8HR [facility] Last Admin: 02/19/21 05:05 Dose: 50 mls/hr Documented by: Diltiazem HCl (Cardizem 100 Mg/D5w 100 Ml) 100 mg in 100 mls @ 5 mls/hr IV CONT .Q20H [facility] Last Admin: 02/18/21 17:47 Dose: 5 mg/hr, 5 mls/hr Documented by: Losartan Potassium (Losartan Potassium 25 Mg Tablet) 25 mg PO DAILY [facility] Last Admin: 02/19/21 08:28 Dose: 25 mg Documented by: Multivitamins/Minerals (Multivitamins /C Lutein (Centrum Silver) Tablet *Bkc) 1 tab PO DAILY [facility] Last Admin: 02/19/21 08:27 Dose: 1 tab Documented by: Rivaroxaban (Rivaroxaban 20 Mg Tablet) 20 mg PO HS [facility] Last Admin: 02/18/21 20:49 Dose: 20 mg Documented by: Sotalol HCl (Sotalol Hcl 40 Mg Tablet) 120 mg PO Q12HR [facility] Last Admin: 02/19/21 08:29 Dose: 120 mg Documented by: Sedation/Anesthesia: No previous sedation/anesthesia problems (including family history). PMFSH Past Medical History Medical History A-fib Gout Hyponatremia Family History Family History Mother Ovarian cancer Heart disease Father Heart disease Hypertension Cerebrovascular accident Mother Hypertension Dementia Sibling Heart disease Hypertension ASVD (arteriosclerotic vascular disease) Social History Social History Smoking status: Never smoker Second hand tobacco smoke exposure: Yes Alcohol intake: former Substance use: never Gender identity (if verbalized by the patient): Female Spiritual care concerns: Yes (non-denomination from [employer] Orthodox descent) Mod Sed Physical Exam Physical Exam Pre Procedural Exam: Normal: Appearance, Eyes, Ears, Nose, Neck, Throat, Airway, Lungs, Heart Size, Heart Rate, Heart Rhythm, Neuro Exam, Abdomen, Liver, Kidneys, Spleen, Breasts, Genitalia, Extremities and Skin Hours since solid foods: 8 Hours since liquid intake: 8 Mallampati Classification: class 1 Internal Medicine - PN: Obj Da Vital Signs Vital Signs: Vital Signs - 24 hr 02/18/21 13:55 02/18/21 14:00 02/18/21 16:00 Temperature 36.6 C Pulse Rate 119 H 95 Respiratory Rate 16 Blood Pressure 110/73 Pulse Oximetry 92 98 02/18/21 18:00 02/18/21 20:00 02/18/21 22:00 Temperature 35.8 C L Pulse Rate 101 H 120 H 101 H Respiratory Rate 19 Blood Pressure 125/92 H Pulse
--- NOTE | 2021-02-19 13:01 | WPDHPUPDATE1 ---
History and Physical Update Update Date/Time: 02/19/21 13:01 History and Physical has been reviewed, including an updated exam of the patient. There are NO changes in the patient's condition. Risks, benefits, and alternatives have been discussed and questions answered. Patient agrees to proceed with procedure.
--- NOTE | 2021-02-19 13:06 | WPDCARDVER ---
Cardioversion Cardioversion Date of procedure: 02/19/21 Procedure: 1- moderate sedation as detailed below. 2- electric cardioversion of atrial fibrillation Pre-op diagnosis: symptomatic atrial fibrillation Post-op diagnosis: other ( sinus rhythm) Indications: symptomatic atrial fibrillation Description of procedure: After informed consent the cardioversion pads applied anterior-posterior manner. After that moderate sedation administered and subsequently 200 joules of synchronized cardioversion delivered to the patient with successful conversion to sinus rhythm Sedation: moderate sedation that started at 12:52 p.m. and ended at 1:00 p.m. using 4 mg of Versed and 100 mcg of fentanyl. They are just illness was magdalene gonsalez.. Findings: atrial fibrillation at heart rate 80 beats per minute converted to sinus rhythm. Conclusion: Successful cardioversion. plan: 1- her QTC interval is 480. I will reduce sotalol from 120 mg b.i.d. to 80 mg b.i.d.. To obtain EKG prior to the evening dose. 2- Start patient on diltiazem 30 mg p.o. Q 8 hours. Transition to long-acting diltiazem.
--- NOTE | 2021-02-19 14:09 | SUR.PHASEII ---
1330- Patient consistently hypotensive with blood pressures in the 80s. Patient arousable, on room air, and oriented to person, place, time, and situation. Patient given 500 ml NS bolus. BUSINESS RECORDS MANAGER Rosmery Vasques notified and states she will assess patient at bedside before patient's return to the floor. No further orders obtained at this time. Will continue to monitor.
--- NOTE | 2021-02-19 14:32 | SUR.PHASEII ---
1300- Diltizem gtt turned off per verbal order from Dr. Uribe.
--- NOTE | 2021-02-19 14:32 | SUR.PHASEII ---
Patient's blood pressures continue to be hypotensive. Patient awake and oriented x 4, and able to tolerate sips of water. HEALTHCARE RISK CONTROL CONSULTANT Rosmery Vasques notified and updated on patient's condition- no further orders of updates to plan of care at this time. Per HEALTHCARE RISK CONTROL CONSULTANT, patient safe to transfer back to floor at time time. Report called to SYED Mckeon. Informed SYED Mckeon of patient's need for PO diltiazem upon return to floor- states she will administer to patient. Patient to be transported to IMU by SYED Maier.
[2021-02-19] MEDS: dilTIAZem HCL 30 MG TABLET PO ×2 (16:13→21:01)
--- NOTE | 2021-02-19 19:45 | ECG_ITS ---
Measurements Intervals [place] Rate: 79 P: 90 [place]: 179 QRS: 51 QRSD: 90 T: 76 QT: 423 QTc: 486 Interpretive Statements SINUS RHYTHM DELAYED PRECORDIAL R/S TRANSITION BORDERLINE ST-T WAVE ABNORMALITY- HIGH LATERAL LEADS BORDERLINE ECG Electronically Signed On 02-20-2021 13:32:19 CDT by Gian Kowalski D.O.
[2021-02-19] MEDS: SOTALOL HCL 80 MG TABLET PO (21:01)
[2021-02-19] MEDS: RIVAROXABAN 20 MG TABLET PO (21:01)
[2021-02-20] VITALS (7 sets, daily range): BP systolic 90–102; BP diastolic 60–65; PULSE 61–73; RESP 18; TEMP 36.9–37.1; O2SAT 99–100
[2021-02-20] MEDS: ACETAMINOPHEN 325 MG TABLET 650 MG PO (03:15)
[2021-02-20] MEDS: CLINDAMYCIN 900 MG/D5W 50 ML 900 MG/50 ML PIGGYBACK 50 MG IVPB (06:06)
[2021-02-20] MEDS: dilTIAZem HCL 30 MG TABLET PO (06:06)
[2021-02-20] MEDS: MULTIVITAMINS /C LUTEIN (CENTRUM SILVER) TABLET *BKC 1 TAB PO (09:45)
[2021-02-20] MEDS: CYANOCOBALAMIN 1,000 MCG TABLET 5000 MCG BY MOUTH (09:45)
[2021-02-20] MEDS: FOLIC ACID 1 MG TABLET PO (09:45)
[2021-02-20] MEDS: SOTALOL HCL 80 MG TABLET PO (09:45)
[2021-02-20] MEDS: LOSARTAN POTASSIUM 25 MG TABLET PO (09:46)
--- NOTE | 2021-02-20 10:47 | PM.PNCARD ---
Progress Note: A&P Assessment and Plan (1) Atrial fibrillation with rapid ventricular response: Code(s): I48.91 - Unspecified atrial fibrillation Status: Acute Assessment and Plan: -Remains in sinus rhythm s/p DC cardioversion yesterday. Is feeling well today. -Sotalol 80 mg twice daily. EKG prior to PM dose QTc 471. Will remain on 80mg BID. -Continue Xarelto 20 mg at bedtime. CHADS2 Vasc score 2. Systemic anticoagulation indicated. (2) Hypertension: Code(s): I10 - Essential (primary) hypertension Status: Acute Assessment and Plan: BP control. Continue losartan. (3) LVH (left ventricular hypertrophy): Code(s): I51.7 - Cardiomegaly Status: Acute Assessment and Plan: Moderate LVH by echo, preserved LV systolic function EF 60%. (4) Chronic anticoagulation: Code(s): Z79.01 - long-term (current) use of anticoagulants Status: Acute Assessment and Plan: Continue Xarelto 20 mg at bedtime. Patient has been compliant for least 30 days as noted above. No bleeding. Follow H&H. Hemoglobin stable today. No evidence or signs of bleeding clinically. (5) Cellulitis of foot, left: Code(s): L03.116 - Cellulitis of left lower limb Status: Acute Assessment and Plan: Per primary service. IV antibiotics transitioning to oral per their direction. Subjective Date/time seen: 02/20/21 10:47 Cardiology follow-up for atrial fibrillation Date of service 02/20/2021: Patient is feeling well today status post cardioversion yesterday. She denies any palpitations, shortness of breath, chest pain. She remains in sinus rhythm on sotalol. From a cardiac perspective she is stable for discharge home today. I have arranged for her to have a follow-up EKG in the office in 1 week. Review of Systems Review of Systems: All systems reviewed & are unremarkable except as noted in HPI and below Constitutional: Constitutional: Reports as per HPI, Reports no additional constitutional complaints, Denies chills, Reports fatigue and Reports weakness Eyes: Eyes: Reports as per HPI and Reports no additional eye complaints ENT: Reports system reviewed and no additional complaints, except as documented and Reports as per HPI Cardiovascular: Cardiovascular: Reports as per HPI, Reports no additional cardiovascular complaints, Denies chest pain, Denies diaphoresis, Denies pedal edema, Denies leg edema, Denies lightheadedness, Reports palpitations, Reports dyspnea and Reports dyspnea on exertion Respiratory: Respiratory: Reports as per HPI, Reports no additional respiratory complaints, Denies cough, Denies hemoptysis, Reports dyspnea and Reports dyspnea on exertion Gastrointestinal: Gastrointestinal: Reports as per HPI, Reports no additional gastrointestinal complaints, Denies abdominal pain, Denies melena, Denies hematochezia, Denies diarrhea, Denies nausea and Denies vomiting Genitourinary: Genitourinary: Reports as per HPI and Denies hematuria Musculoskeletal: Musculoskeletal: Reports no additional musculoskeletal complaints and Reports as per HPI Integumentary/Breasts: Skin/Breast: Reports system reviewed and no additional complaints, except as docu and Reports as per HPI Neurologic: Reports system reviewed and no additional complaints, except as documented, Reports as per HPI, Reports Abnormal speech present, Reports behavioral changes and Reports weakness Psychiatric: Psychiatric: Reports no additional psychiatric complaints, Reports as per HPI, Reports anxiety and Reports behavioral changes Endocrine: Endocrine: Reports no additional endocrine complaints, Reports as per HPI, Reports fatigue and Reports palpitations Hematologic/Lymphatic: Hematologic/Lymphatic: Reports no additional hematologic/lymphatic complaints and Reports as per HPI Allergic/Immunologic: Allergic/Immunologic: Reports no additional allergic/immunologic complaints and Reports as per HPI E
--- NOTE | 2021-02-20 15:36 | PM.DS ---
DS: Admitting Diagnosis Admitting Diagnosis afib rvr; cellulitis DS: Discharge Diagnosis Discharge Diagnosis (1) Atrial fibrillation with rapid ventricular response: Code(s): I48.91 - Unspecified atrial fibrillation Status: Acute Assessment and Plan: S/p cardioversion S/p DILTIAZEM DRIP per cards SOTALOL back to home dose CARDIOLOGY following recommendations appreciated Now in SR (2) Cellulitis of foot, left: Code(s): L03.116 - Cellulitis of left lower limb Status: Acute Assessment and Plan: S/p ROCEPHIN AND VANCOMYCIN IN THE EMERGENCY ROOM s/P CLINDAMYCIN BC NGTD (3) Gout: Qualifiers: Chronicity: unspecified Gout etiology: unspecified cause Gout site: foot Laterality: left Qualified Code(s): M10.9 - Gout, unspecified Code(s): M10.9 - Gout, unspecified Status: Acute Assessment and Plan: APPEARS TO HAVE RESOLVED CONTINUE TO MONITOR (4) Sepsis: Qualifiers: Sepsis acute organ dysfunction status: unspecified Sepsis type: sepsis due to unspecified organism Qualified Code(s): A41.9 - Sepsis, unspecified organism Code(s): A41.9 - Sepsis, unspecified organism Status: Acute Assessment and Plan: RULED OUT SYSTEMIC INFLAMMATORY RESPONSE SYNDROME MORE APPROPRIATE DS: Summary Hospital Course Hospital Course: 45 year old lady with a PMH significant for Afib, and Gout presented to the ED with complaints of worsening redness, swelling and pain of the left foot. She reported recent treatment outpatient for Gout, however her symptoms worsened. She denied any traumato the foot. She reported associated fever. Upon arrival to the ED, she was found wit a an elevated HR in the 170s. She reported that she was scheduled for cardioversion outpatient with Lei Gonzales. Preliminary workup revealed: WBC OF 13,000, X-RAY of the left foot with significant soft tissue swelling on the dorsum of the foot. Rocephin and vancomycin were initiated in the ED. She was admitted for further evaluation and treatment. Cardizem drip was initiated and cardiology was consulted. IV antibiotics were changed to clindamycin while inpatient. BC are negative to date. She underwent cardioversion and converted to sinus rhythm. Overall she has improved and is stable for discharge. She will be will discharged with antibiotics. She has been given follow up incstructions. Time Spent with Patient Time attestation: Total time spent providing and/or coordinating discharge services: 55 Exam Const: General: no acute distress, alert and awake Orientation/consciousness: patient oriented x3 HENMT: Head: normocephalic and atraumatic Ears: hearing grossly normal bilaterally and external ears normal Face and sinus: face symmetric Mouth: Yes Normal oral and palatal mucosa present Eyes: Pupils: Equal, round and reactive pupils present EOM: EOMs intact bilaterally Neck: Neck: full ROM, trachea midline and no JVD Thyroid: thyroid normal Chest: Chest palpation & inspection: normal inspection of the chest Resp: Effort & Inspection: normal respiratory effort Auscultation: clear to auscultation bilaterally Cardio: Jugular venous distension: no JVD Rate: regular rate and other Rhythm: regular rhythm and abnormal rhythm irregularly irregular Heart sounds: S1 normal heart sound present and S2 normal heart sound present Other: afib GI: Inspection: normal to inspection Auscultation: normal bowel sounds : General: Yes no CVA tenderness Back/Spine/Pelvis: Back: no CVA tenderness Skin: General skin exam: normal color Rashes: no rashes Neuro: General: patient oriented x3 and CN's II-XI intact bilaterally Cranial nerves: Yes Equal, round and reactive pupils present Speech: normal speech Psych: Appearance: grossly normal Affect: normal affect Judgement: Good judgement present (Psych) DS: Data Data Completed and Pending Labs on day of discharge: Preliminary ignacia
== END 2021-02-20 14:20 | disposition home or self-care (01) | DRG 309 ==
LOC: ANHED 21:43 → ANHIMU 02-17 00:01
PROVIDERS: Emergency Medicine; Internal Medicine Cardiovascular Disease; Nurse Practitioner; Admitting Provider Internal Medicine; Emergency Provider Emergency Medicine; Visit Provider Nurse Practitioner Adult Health
PROC: 5A2204Z Restoration of Cardiac Rhythm, Single (ICD-10-PCS; principal; 2021-02-19 11:30)
DX: I48.91 Unspecified atrial fibrillation (principal); L03.116 Cellulitis of left lower limb; R65.10 Systemic inflammatory response syndrome (SIRS) of non-infectious origin without acute organ dysfunction; M10.9 Gout, unspecified; I51.7 Cardiomegaly; Z79.01 Long term (current) use of anticoagulants; Z79.899 Other long term (current) drug therapy
CPT/HCPCS: 36415; 71046; 73630; 80048; 83036; 83605; 84484; 84550; 85025; 85027; 85610; 85652; 85730; 86140; 87040; 92960; 93005; 93306; 96365; 96366; 96367; 96368; 96375; 96376; 99212; 99285; A9270; G0378; G0463; J0696; J1885; J2250; J2920; J3010; J3370; J7040

== ENCOUNTER 2021-02-23 12:31 | Outpatient (CLI) | payer OTHER, SELFPAY ==
[2021-02-23 13:12] LABS: Hematocrit 36.4 % (37.0-47.0); Hemoglobin 11.9 g/dL (12.0-15.0); Mean Corpuscular HGB Conc 32.7 g/dl (32-36); Mean Corpuscular Hemoglobin 33.6 pg (26-34); Mean Corpuscular Volume 102.8 fl (80-100); Mean Platelet Volume 10.4 fl (7.4-10.4); Platelet Count Result 398 k/mm3 (150-375); Red Blood Count 3.54 M/mm3 (4.2-5.4); Red Cell Distribution Width 15.1 % (11.5-14.5); White Blood Count 8.1 K/mm3 (4.5-10.0)
[2021-02-23 13:15] LABS: Alanine Aminotransferase 23 U/L (4-35); Albumin Level 4.7 g/dL (3.5-5.1); Alkaline Phosphatase 105 U/L (38-126); Anion Gap 12 mmol/L (8-16); Aspartate Amino Transferase 34 U/L (14-36); Bilirubin,Total 0.4 mg/dL (0.2-1.3); Blood Urea Nitrogen 16 mg/dL (7-17); Calcium 9.9 mg/dL (8.4-10.2); Carbon Dioxide 24 mmol/L (22-30); Chloride 103 mmol/L (98-107); Cholesterol 154 mg/dL (0-200); Estimated Glomerular Filt Rate > 60; Glucose 92 mg/dL (65-110); HDL Direct 47 mg/dL; Potassium 4.2 mmol/L (3.4-5.0); Sodium 139 mmol/L (137-145); Triglycerides 171 mg/dL (<150); Uric Acid 9.5 mg/dL (2.5-7.5)
[2021-02-23 13:16] LABS: Rheumatoid Factor < 8.6 IU/ML (<12)
[2021-02-23 13:26] LABS: LDL Cholesterol Direct 71 mg/dL
[2021-02-23 16:24] LABS: Erythrocyte Sedimentation Rate > 140 mm/hr (0-20)
== END 2021-02-23 12:32 | disposition home or self-care (01) ==
PROVIDERS: PCP Emergency Medicine; Visit Provider Emergency Medicine
DX: D72.829 Elevated white blood cell count, unspecified (principal); Z79.01 Long term (current) use of anticoagulants
CPT/HCPCS: 36415; 80053; 80061; 83036; 84439; 84443; 84550; 85027; 85652; 86038; 86039; 86430

== ENCOUNTER 2022-04-21 12:10 | Emergency (ER) | payer OTHER, SELFPAY ==
[2022-04-21] VITALS (7 sets, daily range): BP systolic 135–176; BP diastolic 61–101; PULSE 72–91; RESP 16–22; TEMP 36.7–36.8; O2SAT 97–100
[2022-04-21 12:51] LABS: Basophils Percent Auto 0.3 % (0.2-1.2); Eosinophils Absolute Auto 0.1 K/mm3 (0-0.3); Eosinophils Percent Auto 0.8 % (0-4.4); Hematocrit 37.1 % (37.0-47.0); Hemoglobin 12.1 g/dL (12.0-15.0); Immature Granulocyte Absolute 0.05 K/mm3 (0.00-0.031); Immature Granulocyte Percent A 0.6 % (0-0.5); Lymphocytes Percent Auto 11.6 % (18.3-44.2); Mean Corpuscular HGB Conc 32.6 g/dl (32-36); Mean Corpuscular Hemoglobin 33.4 pg (26-34); Mean Corpuscular Volume 102.5 fl (80-100); Mean Platelet Volume 9.5 fl (7.4-10.4); Monocytes Absolute Auto 0.6 K/mm3 (0.1-0.6); Monocytes Percent Auto 7.2 % (2.6-8.5); Neutrophils Absolute Auto 6.2 K/mm3 (1.3-6.7); Neutrophils Percent Auto 79.5 % (45.5-73.1); Platelet Count Result 201 k/mm3 (150-375); Red Blood Count 3.62 M/mm3 (4.2-5.4); Red Cell Distribution Width 14.3 % (11.5-14.5); White Blood Count 7.7 K/mm3 (4.5-10.0)
--- NOTE | 2022-04-21 15:04 | ECG_ITS ---
Measurements Intervals [place] Rate: 70 P: 53 AL: 174 QRS: 23 QRSD: 85 T: 100 QT: 422 QTc: 458 Interpretive Statements SINUS RHYTHM DELAYED PRECORDIAL R/S TRANSITION ST-T WAVE ABNORMALITY IN HIGH LATERAL LEADS- CONSIDER ISCHEMIA BASELINE ARTIFACT- I, III, AVL ABNORMAL ECG COMPARED TO ECG 02/19/2021 20:24:28 ST (T WAVE) DEVIATION NOW PRESENT Electronically Signed On 04-21-2022 15:32:11 CDT by Gian Kowalski D.O.
--- NOTE | 2022-04-21 15:16 | ED.EPISTAXIS ---
HPI - Epistaxis General Chief complaint: Epistaxis Stated complaint: nose bleed Time Seen by Provider: 04/21/22 14:46 History of Present Illness HPI Narrative: 46-year-old female history of A. fib multiple ablations presents the emergency room for evaluation of epistaxis. Patient states that she has had episodic nosebleeds for 3 days. Patient reports she has been experiencing headaches for this length of time as well. Was seen at her primary care physician on Tuesday for headaches and had her losartan dose increased due to elevated blood pressure readings. Patient was again seen in her PCP today with a nosebleed, and was encouraged to come here for further evaluation. Patient states when she experienced the headaches nosebleeds follow-up. When experiencing epistaxis her headaches spontaneously resolved. Patient denies any chest pain or shortness of breath difficulty breathing. Related Data Home Medications Medication Instructions Recorded Confirmed rivaroxaban 20 mg tablet (Xarelto) 20 mg PO HS 06/22/19 02/03/22 cyanocobalamin (vitamin B-12) 1,000 mcg subcut MONTHLY 02/16/21 02/03/22 1,000 mcg/mL injection solution folic acid 1 mg tablet 1 mg PO DAILY 02/16/21 02/03/22 losartan 25 mg tablet 25 mg PO DAILY 02/16/21 02/03/22 acetaminophen 325 mg capsule 650 mg PO ONCE PRN Pain 02/17/21 02/03/22 (Tylenol) cyanocobalamin (vitamin B-12) 5,000 mcg sublingual BID 02/17/21 02/03/22 5,000 mcg sublingual tablet (Vitamin B-12) mkejqmxh-ljplysc-nqxg-lutein 1 tablet PO DAILY 02/17/21 02/03/22 tablet ([facility] tablet) metoprolol succinate 25 mg 25 mg PO DAILY 09/07/21 02/03/22 tablet,extended release 24 hr amiodarone 200 mg tablet 200 mg PO BID 09/08/21 02/03/22 Allergies Allergy/AdvReac Type Severity Reaction Status Date / Time lisinopril Allergy Mild Hives Verified 02/03/22 12:13 nifedipine Allergy Mild Hives / Verified 02/03/22 12:13 Red Face hydromorphone Allergy Unknown Hives / Verified 02/03/22 12:13 Red Face Review of Systems Review of Systems: CONSTITUTIONAL: Denies fever, chills, or sweats. EYES: Denies visual changes, redness, or discharge. ENT: Reports epistaxis CARDIOVASCULAR: Denies chest pain, palpitations, or edema. RESPIRATORY: Denies cough or dyspnea. GASTROINTESTINAL: Denies abdominal pain, nausea, vomiting, or diarrhea. GENITOURINARY: Denies dysuria or hematuria. SKIN: Denies rash or itching. MUSCULOSKELETAL: Denies back pain, joint pain, or myalgia. NEUROLOGIC: Reports headaches PSYCHIATRIC: Denies anxiety or depression. PMFSH Past Medical History Medical History A-fib Gout Hyponatremia Family History Family History Mother Ovarian cancer Heart disease Father Heart disease Hypertension Cerebrovascular accident Mother Hypertension Dementia Sibling Heart disease Hypertension ASVD (arteriosclerotic vascular disease) Social History Social History Smoking status: Never smoker Second hand tobacco smoke exposure: Yes Alcohol intake: former Substance use: never Gender identity (if verbalized by the patient): Female Spiritual care concerns: No Exam Narrative: GENERAL: Well-appearing, well-nourished, no physical limitations, and in no acute distress. HEAD: Normocephalic, atraumatic. EYES: Conjunctivae normal, PERRLA and EOMI. ENT: External nose normal, Nares clear, no rhinorrhea or recurrent epistaxis. NECK: Supple. CHEST: Clear to auscultation. No respiratory distress. No wheezes rales or rhonchi. No tenderness. HEART: Regular rate and rhythm. No murmur heard. Normal peripheral pulses. EXTREMITIES: Normal range of motion. No edema. No clubbing or cyanosis SKIN: Warm, dry, no rash. No noted wounds NEURO: No focal deficits. Alert and oriented x3. MELINA. CN's II-XI in
[2022-04-21] MEDS: hydrALAZINE HCL 20 MG/ML VIAL IV PUSH (15:26)
[2022-04-21 15:32] LABS: Alanine Aminotransferase 70 U/L (6-35); Albumin Level 4.7 g/dL (3.5-5.1); Alkaline Phosphatase 113 U/L (38-126); Anion Gap 14 mmol/L (8-16); Aspartate Amino Transferase 85 U/L (14-36); Bilirubin,Total 0.7 mg/dL (0.2-1.3); Blood Urea Nitrogen 8 mg/dL (7-17); Calcium 9.3 mg/dL (8.4-10.2); Carbon Dioxide 26 mmol/L (22-30); Chloride 99 mmol/L (98-107); Estimated CRCL calculation 88 ml/min; Estimated Glomerular Filt Rate > 60; Glucose 104 mg/dL (65-110); Potassium 4.1 mmol/L (3.4-5.0); Sodium 139 mmol/L (137-145)
[2022-04-21 15:33] LABS: INR 1.9; Prothrombin Time 21.4 Seconds (11.1-14.7)
[2022-04-21 15:34] LABS: Partial Thromboplastin Time 35.3 SECONDS (22.3-36.8)
[2022-04-21 15:44] LABS: Troponin I 0.016 ng/mL (0.000-0.034)
== END 2022-04-21 17:41 | disposition home or self-care (01) ==
PROVIDERS: Emergency Medicine; Emergency Provider Nurse Practitioner Family; PCP Family Medicine
DX: R04.0 Epistaxis (principal); I10 Essential (primary) hypertension; I48.91 Unspecified atrial fibrillation; M10.9 Gout, unspecified; Z79.01 Long term (current) use of anticoagulants; R94.31 Abnormal electrocardiogram [ECG] [EKG]
CPT/HCPCS: 36415; 80053; 84484; 85025; 85610; 85730; 93005; 96374; 99284; J0360

== ENCOUNTER 2023-04-09 05:26 | Emergency (ER) | payer OTHER, SELFPAY ==
--- NOTE | ~2023-04-09 | XR_ITS ---
XR foot RT min 3V DATE: 04/09/2023 06:58 INDICATION: Foot pain. No injury. TECHNIQUE: 3 views COMPARISON: None FINDINGS: Moderate plantar calcaneal enthesopathy without associated erosive change or periostitis. Hallux valgus and bunion deformity. Mild osteoarthritis at the first metatarsophalangeal joint. Hammertoe deformities second through fifth digits Osteopenia. No fracture, dislocation, periosteal reaction or bone destruction is detected. IMPRESSION: Plantar calcaneal enthesopathy Hallux valgus and bunion deformity Mild osteoarthritis at first metatarsophalangeal joint Hammertoe deformities. Reviewed, dictated and finalized at location A.
[2023-04-09 05:32] VITALS: BP 153/87; PULSE 57; RESP 16; TEMP 35.9; O2SAT 100
[2023-04-09 07:01] VITALS: BP 166/55; PULSE 54; RESP 20; O2SAT 100
--- NOTE | 2023-04-09 07:18 | ED.LOWEXIN ---
HPI - Extremity Injury (Lower) General Chief Complaint: Extremity Injury, Lower Stated Complaint: R foot pain Time Seen by Provider: 04/09/23 06:58 History of Present Illness HPI Narrative: Patient is a 47-year-old female who presents ER with pain to her right heel. Worsening over the last couple days. Has pain with trying to bear weight and walk. She is able to plantarflex and dorsiflex though she does have discomfort. No swelling or redness of joints. Patient recently had a UTI that she was hospitalized for. She was then discharged on outpatient Levaquin for 12 days, she completed the course of antibiotics on 03/30/2023. No residual urinary issues. She has taken Tylenol without improvement. Patient denies any trauma to the area. Related Data Home Medications Medication Instructions Recorded Confirmed rivaroxaban 20 mg tablet (Xarelto) 20 mg PO HS 06/22/19 02/03/22 cyanocobalamin (vitamin B-12) 1,000 mcg subcut MONTHLY 02/16/21 02/03/22 1,000 mcg/mL injection solution folic acid 1 mg tablet 1 mg PO DAILY 02/16/21 02/03/22 losartan 25 mg tablet 25 mg PO DAILY 02/16/21 02/03/22 acetaminophen 325 mg capsule 650 mg PO ONCE PRN Pain 02/17/21 02/03/22 (Tylenol) cyanocobalamin (vitamin B-12) 5,000 mcg sublingual BID 02/17/21 02/03/22 5,000 mcg sublingual tablet (Vitamin B-12) mrdmsejf-uptpymz-wekt-lutein 1 tablet PO DAILY 02/17/21 02/03/22 tablet ([facility] tablet) metoprolol succinate 25 mg 25 mg PO DAILY 09/07/21 02/03/22 tablet,extended release 24 hr amiodarone 200 mg tablet 200 mg PO BID 09/08/21 02/03/22 Allergies Allergy/AdvReac Type Severity Reaction Status Date / Time lisinopril Allergy Mild Hives Verified 04/09/23 07:03 nifedipine Allergy Mild Hives / Verified 04/09/23 07:03 Red Face hydromorphone Allergy Unknown Hives / Verified 04/09/23 07:03 Red Face Review of Systems Constitutional: Constitutional: Reports no additional constitutional complaints Cardiovascular: Cardiovascular: Reports no additional cardiovascular complaints Respiratory: Respiratory: Reports no additional respiratory complaints Genitourinary: Genitourinary: Reports no additional female genitourinary complaints Musculoskeletal: Musculoskeletal: Denies arthralgias and Denies joint swelling Comments: Pain to the right heel Neurologic: Reports system reviewed and no additional complaints, except as documented PMFSH Past Medical History Medical History A-fib Gout Hyponatremia Family History Family History Mother Ovarian cancer Heart disease Father Heart disease Hypertension Cerebrovascular accident Mother Hypertension Dementia Sibling Heart disease Hypertension ASVD (arteriosclerotic vascular disease) Social History Social History Smoking status: Never smoker Second hand tobacco smoke exposure: Yes Alcohol intake: former Substance use: never Gender identity (if verbalized by the patient): Female Spiritual care concerns: No Exam Narrative: GENERAL: Well-appearing, well-nourished, and in no acute distress. HEAD: Normocephalic, atraumatic. ENT: Mucous membranes moist. CHEST: Clear to auscultation. No respiratory distress. HEART: Regular rate and rhythm. Normal peripheral pulses. EXTREMITIES: Normal range of motion. No edema. Tender palpation posterior heel near the insertion site of the Achilles on the right side. No swelling or redness. SKIN: Warm, dry, no rash. NEURO: Alert and oriented x3. PSYCH: Normal mood and affect. Course Course Emergency Course: Patient may have an Achilles tendinitis given location of her pain and recent fluoroquinolone usage. Patient will be placed in a short leg posterior splint and referred to orthopedic surgery. Vital Signs Vital signs:
[2023-04-09] MEDS: HYDROcodone/acetaminophen (*CRX) 5-325 MG TABLET 1 TAB PO (08:20)
== END 2023-04-09 09:13 | disposition home or self-care (01) ==
PROVIDERS: Emergency Provider Emergency Medicine; PCP Family Medicine
DX: M76.61 Achilles tendinitis, right leg (principal); I48.91 Unspecified atrial fibrillation
CPT/HCPCS: 29515; 73630; 99283; A9270

== ENCOUNTER 2023-04-23 09:28 | Outpatient (CLI) | payer OTHER, SELFPAY ==
--- NOTE | ~2023-04-23 | MR_ITS ---
EXAMINATION: MR ankle RT wo con DATE: 04/23/2023 10:19 INDICATION: Right foot and ankle pain TECHNIQUE: Magnetic resonance imaging (MRI) of the right ankle was performed without intravenous cont rast. Sequences included sagittal, coronal, and axial proton-density weighted fast spin echo without and with fat saturation. COMPARISON: Radiographs dated 04/13/2023 and 04/09/2023 FINDINGS: Medial ankle ligaments: There is some thickening of the superficial deltoid ligament and loss of the normally more well-defin ed striated pattern of the deep deltoid ligament without significant surrounding edema consistent wit h scarring related to chronic sprains. The spring ligament complex remains normal. Lateral ankle ligaments: The posterior inferior tibiofibular and posterior talofibular ligaments are normal. There is thickeni ng and increased signal of the anterior inferior tibiofibular and calcaneofibular ligaments without s urrounding soft tissue edema consistent with additional scarring related to chronic sprains. The ante rior talofibular ligament appears diminutive consistent with additional chronic partial tear. Tendons: Minimal Achilles tendinosis. Tiny enthesophytes at its calcaneal insertion. There is associated marro w edema and minimal edema in the surrounding fat centered at the lateral distal insertion consistent with enthesitis. Additional enthesitis at the calcaneal insertion of the plantar aponeurosis with mod erate-sized enthesophyte, minimal marrow edema and mild thickening and increased signal of the proxim al most aponeurosis. The peroneus longus and brevis tendons are normal. The tibialis anterior and ext ensor hallucis longus and extensor digitorum longus tendons are normal. The tibialis posterior, flexo r digitorum longus and flexor hallucis longus tendons are normal. Bones/other: Bone alignment is normal. Normal marrow signal aside from the previous noted edema-like signal change at the posterior tuberosity of the calcaneus. No fracture or pathologic marrow replacing process. M ild osteoarthritis at several joints in the midfoot. The Lisfranc ligament complex is normal. Fluid: Physiologic amount fluid in the joint spaces. Mild synovitis at the posterior recess of the ankle nolberto nt. No abnormal fluid collections. IMPRESSION: 1. Acute on chronic Achilles and plantar calcaneal enthesitis. 2. Scarring consistent with chronic sprains of both medial and lateral sided ankle ligaments as detai led above. Reviewed, dictated and finalized at location A. IMPRESSION: 1. Acute on chronic Achilles and plantar calcaneal enthesitis. 2. Scarring consistent with chronic sprains of both medial and lateral sided an kle ligaments as detailed above.
== END 2023-04-23 09:29 | disposition home or self-care (01) ==
PROVIDERS: PCP Family Medicine; Visit Provider Orthopaedic Surgery
DX: M77.31 Calcaneal spur, right foot (principal)
CPT/HCPCS: 73721

== ENCOUNTER 2023-12-29 09:49 | Emergency (ER) | payer OTHER, SELFPAY ==
--- NOTE | 2023-12-29 10:00 | ED.URI ---
HPI - URI/Sore Throat General Chief Complaint: Fever Stated Complaint: fever,fatigue,COLE HX of sepsis Time Seen by Provider: 12/29/23 09:51 Source: patient Mode of arrival: ambulatory Limitations: no limitations History of Present Illness HPI Narrative: Patient is a 48-year-old female that presents with fever fatigue and headache intermittently since Tuesday. Patient reports similar symptoms last year where she ended up in the hospital with a start of sepsis due to UTI. Patient has taken Tylenol. Denies any nausea, vomiting, diarrhea, congestion, cough, low back pain, blood in urine. Related Data Home Medications Medication Instructions Recorded Confirmed rivaroxaban 20 mg tablet (Xarelto) 20 mg PO HS 06/22/19 12/29/23 cyanocobalamin (vitamin B-12) 1,000 mcg subcut MONTHLY 02/16/21 12/29/23 1,000 mcg/mL injection solution folic acid 1 mg tablet 1 mg PO DAILY 02/16/21 12/29/23 losartan 25 mg tablet 25 mg PO DAILY 02/16/21 12/29/23 acetaminophen 325 mg capsule 650 mg PO ONCE PRN Pain 02/17/21 12/29/23 (Tylenol) jdmozfsx-myilmgz-hnbh-lutein 1 tablet PO DAILY 02/17/21 12/29/23 tablet ([facility] tablet) metoprolol succinate 25 mg 75 mg PO DAILY 09/07/21 12/29/23 tablet,extended release 24 hr losartan 100 1 tablet PO DAILY 04/15/23 12/29/23 mg-hydrochlorothiazide 12.5 mg tablet Allergies Allergy/AdvReac Type Severity Reaction Status Date / Time lisinopril Allergy Mild Hives Verified 12/29/23 10:17 nifedipine Allergy Mild Hives / Verified 12/29/23 10:17 Red Face hydromorphone Allergy Unknown Hives / Verified 12/29/23 10:17 Red Face Review of Systems Review of Systems: All systems reviewed & are unremarkable except as noted in HPI and below Constitutional: Constitutional: Denies body ache(s), Reports chills, Reports fatigue, Reports fever(s), Reports headache(s), Denies malaise and Denies weakness Eyes: Eyes: Denies blurry vision, Denies itchy eyes and Denies loss of vision ENT: Denies otalgia, Denies headache(s), Denies nasal congestion, Denies sinus pain and Denies sore throat Cardiovascular: Cardiovascular: Denies chest pain, Denies irregular heart rhythm and Denies dyspnea Respiratory: Respiratory: Denies cough and Denies dyspnea Gastrointestinal: Gastrointestinal: Denies abdominal pain, Denies diarrhea, Denies nausea and Denies vomiting Musculoskeletal: Musculoskeletal: Denies back pain, Denies myalgias and Denies arthralgias Integumentary/Breasts: Skin/Breast: Denies pruritus and Denies rash Neurologic: Reports headache(s), Denies loss of vision and Denies weakness Psychiatric: Psychiatric: Reports no additional psychiatric complaints Endocrine: Endocrine: Reports fatigue Allergic/Immunologic: Allergic/Immunologic: Denies itchy eyes PMFSH Past Medical History Medical History A-fib Calcaneal bursitis, right Gout Hyponatremia Partial tear of right Achilles tendon Family History Family History Mother Ovarian cancer Heart disease Father Heart disease Hypertension Cerebrovascular accident Mother Hypertension Dementia Sibling Heart disease Hypertension ASVD (arteriosclerotic vascular disease) Social History Social History Smoking status: Never smoker Second hand tobacco smoke exposure: Yes Alcohol intake: former Substance use: never Gender identity (if verbalized by the patient): Female Spiritual care concerns: No Comments At time of signature, agree with nursing past medical, surgical, social and family history. There is no relevant family history pertinent to the presenting complaint. Exam Const: General: cooperative, healthy appearing, comfortable, no acute distress and well nourished Nutritional Appearance: well nourished Orientation/consciousness: anthony
[2023-12-29 10:04] VITALS: BP 126/75; PULSE 60; RESP 18; TEMP 36.4; O2SAT 100
== END 2023-12-29 10:44 | disposition home or self-care (01) ==
PROVIDERS: Emergency Provider Nurse Practitioner Family; PCP Nurse Practitioner Family
DX: N39.0 Urinary tract infection, site not specified (principal); B96.20 Unspecified Escherichia coli [E. coli] as the cause of diseases classified elsewhere; R50.9 Fever, unspecified; Z20.822 Contact with and (suspected) exposure to COVID-19; I48.91 Unspecified atrial fibrillation; M10.9 Gout, unspecified
CPT/HCPCS: 81003; 87077; 87086; 87088; 87186; 87426; 87804; 99213; G0463

== ENCOUNTER 2024-01-20 21:36 | Emergency (ER) | payer OTHER, SELFPAY ==
--- NOTE | ~2024-01-20 | XR_ITS ---
XR ankle RT min 3V Ordering provider: Ethan Barahona MD History: . 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 Comparison: None. FINDINGS: BONES: No acute fracture or dislocation. JOINT SPACES: Normal. SOFT TISSUES: Edema over the medial and lateral malleoli. Calcaneal spur. IMPRESSION: No acute osseous abnormality of the right ankle. Reviewed, dictated and finalized at location A.
--- NOTE | ~2024-01-20 | XR_ITS ---
XR foot RT min 3V Ordering provider: Ethan Barahona MD History: . injury . Comparison: None. FINDINGS: BONES: No acute fracture or dislocation. JOINT SPACES: Osteoarthritic changes of the first tarsometatarsal joint. No tarsal coalition. SOFT TISSUES: Normal. Calcaneal spur. IMPRESSION: No acute osseous abnormality of the right foot. Reviewed, dictated and finalized at location A.
[2024-01-20 21:58] VITALS: BP 153/70; PULSE 60; RESP 20; TEMP 36.3; O2SAT 100
--- NOTE | 2024-01-21 00:07 | PC.NURSE ---
Patient comes to desk with family to state I think we are going to leave, I will just go to urgent care in the morning. Patient informed of risks of leaving before being evaluated by a provider and benefits of staying for evaluation. Patient a/ox4, verbalized understanding. Patient states I will come back if I need to, there are people here that need to be seen before me. Patient was wheeled out of the ED via w/c by family with her belongings in hand.
== END 2024-01-21 00:24 | disposition left against medical advice (07) ==
LOC: ANHED 01-21 00:17
PROVIDERS: Emergency Provider Emergency Medicine; PCP Nurse Practitioner Family
DX: S99.911A Unspecified injury of right ankle, initial encounter (principal); X50.9XXA Other and unspecified overexertion or strenuous movements or postures, initial encounter
CPT/HCPCS: 73610; 73630; 99199

== ENCOUNTER 2024-01-21 10:09 | Emergency (ER) | payer OTHER, SELFPAY ==
[2024-01-21 10:23] VITALS: BP 152/79; PULSE 58; RESP 16; TEMP 36.4; O2SAT 99
--- NOTE | 2024-01-21 10:47 | ED.LOWEXIN ---
HPI - Extremity Injury (Lower) General Chief Complaint: Extremity Injury, Lower Stated Complaint: Right Ankle Injury Time Seen by Provider: 01/21/24 10:47 Source: patient Mode of arrival: ambulatory Limitations: no limitations History of Present Illness HPI Narrative: 48-year-old female presents with complaint of pain and swelling to right ankle. Patient states yesterday around 7:00 p.m. she was shopping at [employer]. Take up a watermelon and turn to put it in her basket and became off balance because right foot was stuck in palate. Box of watermelon sitting on top of palate. States when she became off balance she twisted right ankle. Did not fall to the ground. Went to ER last night due to pain and swelling. Had x-rays completed but left before seeing a provider. States the wait was too long. Ambulatory with a cane today. States that she has cane from previous right Achilles tendon injury. Also wearing ankle brace that she had at home. All systems reviewed and negative except as noted above. Related Data Home Medications Medication Instructions Recorded Confirmed rivaroxaban 20 mg tablet (Xarelto) 20 mg PO HS 06/22/19 01/21/24 cyanocobalamin (vitamin B-12) 1,000 mcg subcut MONTHLY 02/16/21 01/21/24 1,000 mcg/mL injection solution folic acid 1 mg tablet 1 mg PO DAILY 02/16/21 01/21/24 losartan 25 mg tablet 25 mg PO DAILY 02/16/21 01/21/24 acetaminophen 325 mg capsule 650 mg PO ONCE PRN Pain 02/17/21 01/21/24 (Tylenol) gelketiw-unqruqd-qqbx-lutein 1 tablet PO DAILY 02/17/21 01/21/24 tablet ([facility] tablet) metoprolol succinate 25 mg 75 mg PO DAILY 09/07/21 01/21/24 tablet,extended release 24 hr losartan 100 1 tablet PO DAILY 04/15/23 01/21/24 mg-hydrochlorothiazide 12.5 mg tablet Allergies Allergy/AdvReac Type Severity Reaction Status Date / Time lisinopril Allergy Mild Hives Verified 01/21/24 10:15 nifedipine Allergy Mild Hives / Verified 01/21/24 10:15 Red Face hydromorphone Allergy Unknown Hives / Verified 01/21/24 10:15 Red Face Review of Systems Review of Systems: CONSTITUTIONAL: Denies fever, chills, or sweats. EYES: Denies visual changes, redness, or discharge. ENT: Denies rhinorrhea, congestion, sore throat, or otalgia. CARDIOVASCULAR: Denies chest pain, palpitations, or edema. RESPIRATORY: Denies cough or dyspnea. GASTROINTESTINAL: Denies abdominal pain, nausea, vomiting, or diarrhea. GENITOURINARY: Denies dysuria or hematuria. SKIN: Denies rash or itching. MUSCULOSKELETAL: Reports right ankle pain and swelling. NEUROLOGIC: Denies headache, numbness, or weakness. PSYCHIATRIC: Denies anxiety or depression. All other systems reviewed are negative, except as documented in HPI. [facility] Past Medical History Medical History A-fib Calcaneal bursitis, right Gout Hyponatremia Partial tear of right Achilles tendon Family History Family History Mother Ovarian cancer Heart disease Father Heart disease Hypertension Cerebrovascular accident Mother Hypertension Dementia Sibling Heart disease Hypertension ASVD (arteriosclerotic vascular disease) Social History Social History Smoking status: Never smoker Second hand tobacco smoke exposure: Yes Alcohol intake: former Substance use: never Gender identity (if verbalized by the patient): Female Spiritual care concerns: No Comments At time of signature, agree with nursing past medical, surgical, social and family history. There is no relevant family history pertinent to the presenting complaint. Exam Narrative: GENERAL: This is a well-nourished, well-developed patient, in no apparent distress. HEAD: normocephalic, atraumatic. EYES: PERRL. Sclera clear/white. Vision is grossly intact. EARS: External ears norm
== END 2024-01-21 11:05 | disposition home or self-care (01) ==
PROVIDERS: Emergency Provider Nurse Practitioner Family; PCP Nurse Practitioner Family
DX: S93.401A Sprain of unspecified ligament of right ankle, initial encounter (principal); X50.9XXA Other and unspecified overexertion or strenuous movements or postures, initial encounter; I48.91 Unspecified atrial fibrillation; M10.9 Gout, unspecified
CPT/HCPCS: 99212; G0463

== ENCOUNTER 2024-05-11 19:38 | Emergency (ER) | payer OTHER, SELFPAY ==
[2024-05-11 19:40] VITALS: BP 183/71; PULSE 90; RESP 20; TEMP 37; O2SAT 100
--- NOTE | 2024-05-11 19:44 | ED.SKABFB ---
HPI - Skin/Abscess/Foreign Bdy General Chief complaint: Skin/Abscess/Foreign Body Stated complaint: Insect Bite Time Seen by Provider: 05/11/24 19:44 Source: patient, RN notes reviewed and old records reviewed Mode of arrival: ambulatory Limitations: no limitations History of Present Illness HPI narrative: 48-year-old female presents to the [facility] with concerns for 3 possible insect bites to the left flank area. Noticed it on Tuesday when she was having a cardioversion 3 small bumps, pink, not swollen, no increased warmth. Patient states that they are itchy. Related Data Home Medications Medication Instructions Recorded Confirmed rivaroxaban 20 mg tablet (Xarelto) 20 mg PO HS 06/22/19 05/11/24 cyanocobalamin (vitamin B-12) 1,000 mcg subcut MONTHLY 02/16/21 05/11/24 1,000 mcg/mL injection solution folic acid 1 mg tablet 1 mg PO DAILY 02/16/21 05/11/24 losartan 25 mg tablet 25 mg PO DAILY 02/16/21 05/11/24 acetaminophen 325 mg capsule 650 mg PO ONCE PRN Pain 02/17/21 05/11/24 (Tylenol) wodtomwq-fbdobfu-ucmu-lutein 1 tablet PO DAILY 02/17/21 05/11/24 tablet ([facility] tablet) metoprolol succinate 25 mg 75 mg PO DAILY 09/07/21 05/11/24 tablet,extended release 24 hr losartan 100 1 tablet PO DAILY 04/15/23 05/11/24 mg-hydrochlorothiazide 12.5 mg tablet Allergies Allergy/AdvReac Type Severity Reaction Status Date / Time lisinopril Allergy Mild Hives Verified 05/11/24 19:39 nifedipine Allergy Mild Hives / Verified 05/11/24 19:39 Red Face hydromorphone Allergy Unknown Hives / Verified 05/11/24 19:39 Red Face Review of Systems Review of Systems: All systems reviewed & are unremarkable except as noted in HPI and below Constitutional: Constitutional: Reports no additional constitutional complaints Eyes: Eyes: Reports no additional eye complaints ENT: Reports system reviewed and no additional complaints, except as documented Cardiovascular: Cardiovascular: Reports no additional cardiovascular complaints, Denies chest pain and Denies dyspnea Respiratory: Respiratory: Reports no additional respiratory complaints, Denies chest congestion, Denies cough and Denies dyspnea Gastrointestinal: Gastrointestinal: Reports no additional gastrointestinal complaints, Denies abdominal pain, Denies nausea and Denies vomiting Musculoskeletal: Musculoskeletal: Reports no additional musculoskeletal complaints Integumentary/Breasts: Skin/Breast: Reports as per HPI Neurologic: Reports system reviewed and no additional complaints, except as documented Psychiatric: Psychiatric: Reports no additional psychiatric complaints Allergic/Immunologic: Allergic/Immunologic: Reports no additional allergic/immunologic complaints [facility] Past Medical History Medical History A-fib Calcaneal bursitis, right Gout Hyponatremia Partial tear of right Achilles tendon Family History Family History Mother Ovarian cancer Heart disease Father Heart disease Hypertension Cerebrovascular accident Mother Hypertension Dementia Sibling Heart disease Hypertension ASVD (arteriosclerotic vascular disease) Social History Social History Smoking status: Never smoker Second hand tobacco smoke exposure: Yes Alcohol intake: former Substance use: never Gender identity (if verbalized by the patient): Female Spiritual care concerns: No Comments At the time of my signature, I reviewed and agree with the nursing past medical, surgical, social, and family history. There is no relevant family history pertinent to the patient complaint. Exam Const: General: cooperative, healthy appearing, comfortable, no acute distress, well developed, alert and well nourished Nutritional Appearance: well nourished Orientation/consciousness: patient oriented x3 Limitations: no limitations HENMT: Head: normal to inspection Ears: hearing grossly normal bilaterally and external ears normal Face/Nose/Sinus: Normal external nose present, normal facial exam and face symmetric Face and sinus: normal facial exam and face symmetric Eyes: General: appearance normal, both eyes and all related structures Alignment and Position: alignment normal Periorbital: periorbital findings normal Neck: Neck: normal visual inspection, full ROM, no lymphadenopathy and no meningeal signs Chest: Chest palpation & inspection: normal inspection of the chest Resp: Effort & Inspection: normal respiratory effort and able to speak in complete sentences Cardio: Rate: regular rate Skin: General skin exam: normal color and no rashes or lesions noted Rashes: no rashes Trauma: no lacerations or abrasions Wounds: no wounds Other: Three areas less than 1 cm lesions noted to the left chest, no increased warmth, no significant erythema, no swelling. No fluctuance Neuro: General: patient oriented x3, gait normal, tone normal, moves all extremities and no meningeal signs Cognition (Neuro): normal cognition Speech: normal speech Gait exam (Neuro): Normal gait present Extrem: General: normal to inspection, full ROM, capillary refill normal and normal gait Psych: Appearance: grossly normal and well kempt Mental Status: mental status grossly normal Speech and movement: Normal speech and movement present and Clear speech present Affect: normal affect Attitude: cooperative Course Course Level of Care: Express Care Visit Vital Signs Vital signs: Vital Signs Temperature 98.6 F 05/11/24 19:40 Pulse Rate 90 05/11/24 19:40 Respiratory Rate 20 05/11/24 19:40 Blood Pressure 183/71 H 05/11/24 19:40 Pulse Oximetry 100 05/11/24 19:40 Oxygen Delivery Room Air 05/11/24 19:40 Temperature 98.6 F 05/11/24 19:40 Pulse Rate 90 05/11/24 19:40 Respiratory Rate 20 05/11/24 19:40 Blood Pressure 183/71 H 05/11/24 19:40 Pulse Oximetry 100 05/11/24 19:40 Oxygen Delivery Room Air 05/11/24 19:40 Reviewed MDM - Skin/Abscess/Foreign Bdy MDM Narrative Medical decision making narrative: Patient presents 3 very small lesions to the left bra line. No signs of cellulitis, patient describes it as being very itchy. Possible folliculitis versus insect bites Will treat with Bactroban Patient appropriate for outpatient treatment and follow-up Discharge instructions reviewed with patient, as well as provided in writing per nursing staff. The instructions also include specific and strict return/GO TO THE ER as well as f/u information. All questions have been answered, and the patient deny any further questions with discharge and discharge plan. Some parts of this dictation were generated by voice recognition software and may contain typographical and/or grammatical inaccuracies. Critical Care Time Critical Care Time Critical Care Time: No Discharge Plan Discharge Clinical Impression: Skin lesion Patient Disposition: Home, Self-Care Condition: Stable Instructions: Antibiotic Form, Insect Bite or Sting (ED) Additional Instructions: Wash area twice a day warm soapy water and apply the prescription appointment. Follow-up with primary care provider. Today your blood pressure was 183/81. For worsening symptoms go directly to the emergency room Patient Language: Greenlandic Prescriptions: New mupirocin 2 % ointment 1 applic topical BID Qty: 15 0RF No Action metoprolol succinate 25 mg Tablet Extended Release 24 Hr 75 mg PO DAILY losartan-hydrochlorothiazide 100-12.5 mg Tablet 1 tablet PO DAILY cyanocobalamin (vitamin B-12) 1,000 mcg/mL solution 1,000 mcg subcut MONTHLY losartan 25 mg tablet 25 mg PO DAILY folic acid 1 mg tablet 1 mg PO DAILY Xarelto 20 mg tablet 20 mg PO HS A [facility] Tablet 1 tablet PO DAILY acetaminophen [Tylenol] 325 mg Capsule 650 mg PO ONCE PRN (Reason: Pain) Rx Instructions: takes in am and hs at times Follow-up/Referrals: Reji,Sean Polanco APRN [Primary Care Provider] - 2 Weeks (express care follow up) Stand Alone Forms: Work/School Release IP Time of Disposition: 19:53
== END 2024-05-11 19:55 | disposition home or self-care (01) ==
PROVIDERS: Emergency Provider Nurse Practitioner; PCP Nurse Practitioner Family
DX: L98.9 Disorder of the skin and subcutaneous tissue, unspecified (principal); I48.91 Unspecified atrial fibrillation; M10.9 Gout, unspecified
CPT/HCPCS: 99211; G0463

== ENCOUNTER 2024-07-14 13:11 | Emergency (ER) | payer OTHER, SELFPAY ==
--- NOTE | 2024-07-14 13:13 | ED_ITS ---
HPI - URI/Sore Throat General Chief Complaint: Upper Respiratory Infection Stated Complaint: sore throat,aches Time Seen by Provider: 07/14/24 13:13 Source: patient Mode of arrival: ambulatory Limitations: no limitations History of Present Illness HPI Narrative: Emma is a 48-year-old female patient presenting to clinic today with complaints of sore throat and body aches since this morning. No fever or chills but does report body aches with a severe sore throat. Does have some nasal congestion. Denies any chest pain or shortness of breath. Has a cardioversion for AFib scheduled for Tuesday of next week. Nasal drainage is clear MD elicited complaint: sore throat and nasal congestion Related Data Home Medications ?Medication ?Instructions ?Recorded ?Confirmed ?Last Taken ?Type rivaroxaban 20 mg tablet (Xarelto) 20 mg PO HS 06/22/19 07/14/24 06/21/19 21:00 History cyanocobalamin (vitamin B-12) 1,000 mcg subcut MONTHLY 02/16/21 07/14/24 02/16/21 History 1,000 mcg/mL injection solution folic acid 1 mg tablet 1 mg PO DAILY 02/16/21 07/14/24 02/16/21 History losartan 25 mg tablet 25 mg PO DAILY 02/16/21 07/14/24 02/16/21 History acetaminophen 325 mg capsule 650 mg PO ONCE PRN Pain 02/17/21 07/14/24 02/16/21 History (Tylenol) muxuzjmn-vnokvxt-eixw-lutein 1 tablet PO DAILY 02/17/21 07/14/24 02/16/21 History tablet ([facility] tablet) metoprolol succinate 25 mg 75 mg PO DAILY 09/07/21 07/14/24 Unknown History tablet,extended release 24 hr losartan 100 1 tablet PO DAILY 04/15/23 07/14/24 Unknown History mg-hydrochlorothiazide 12.5 mg tablet allopurinol 300 mg tablet 150 mg PO DAILY 07/14/24 07/14/24 Unknown History cholecalciferol (vitamin D3) 50 50 mcg PO WEEKLY 07/14/24 07/14/24 Unknown History mcg (2,000 unit) capsule flecainide 50 mg tablet 50 mg PO Q12H 07/14/24 07/14/24 Unknown History Allergies Allergy/AdvReac Type Severity Reaction Status Date / Time lisinopril Allergy Mild Hives Verified 07/14/24 13:18 nifedipine Allergy Mild Hives / Verified 07/14/24 13:18 Red Face hydromorphone Allergy Unknown Hives / Verified 07/14/24 13:18 Red Face Review of Systems Review of Systems: Pertinent positives per HPI. Patient denies any fever, chills, rash, headache, visual changes, dizziness, cough, shortness of breath, chest pain, palpitations, nausea, vomiting, diarrhea, constipation, abdominal pain, or any urinary issues. [facility] Past Medical History Medical History Calcaneal bursitis, right Partial tear of right Achilles tendon Gout Hyponatremia A-fib Family History Family History Mother Ovarian cancer Heart disease Father Heart disease Hypertension Cerebrovascular accident Mother Hypertension Dementia Sibling Heart disease Hypertension ASVD (arteriosclerotic vascular disease) Social History Social History Smoking status: Never smoker Second hand tobacco smoke exposure: Yes Alcohol intake: former Substance use: never Gender identity (if verbalized by the patient): Female Spiritual care concerns: No Comments At the time of my signature, I reviewed and agree with the nursing past medical, surgical, social, and family history. There is no relevant family history pertinent to the patient complaint. Exam Narrative: General: Well-developed, obese, in no apparent distress Head: Normocephalic, atraumatic Eyes: Pupils equally round and reactive to light bilaterally, EOM intact, sclera and conjunctive clear, no discharge, lids normal Ears: TMs intact and congested ear canals clear, no drainage, grossly hearing normal. Nose: Nares patent, clear nasal discharge, no inflammation, no sinus tenderness. Mouth: Oropharynx red with bilateral tonsillar enlargement without lesions or masses, good dentition, MMM. Postnasal drip Neck: Supple, trachea midline, no enlargement of anterior or posterior cervical nodes, no thyroid masses or goiter palpable. Cardio: Regular rate and rhythm, s1 and s2 normal, no murmur appreciated. Resp: Clear to auscultation bilaterally anteriorly and posteriorly, no rhonchi, rales, wheezing or rubs Course Course Emergency Course: Portions of this record may have been created with voice recognition software. Level of Care: Express Care Visit Vital Signs Vital signs: Vital signs reviewed MDM - URI/Sore Throat MDM Narrative Medical decision making narrative: At the time of visit patient is resting comfortably on the exam table. Patient appears to be nontoxic. Labs: Strep test was performed and negative in the clinic today. We will send strep for culture Plan: I suspect patient has URI/pharyngitis. Supportive measures were discussed with the patient and they voiced understanding discharge instructions and agrees to treatment plan. Return precautions reviewed Differential Diagnosis Differential diagnosis: Likely upper respiratory infection, croup, otitis media, sinusitis, viral infection, bronchitis, influenza, pharyngitis and other (COVID) Discharge Plan Discharge Clinical Impression: Upper respiratory infection Qualifiers: URI type: unspecified URI Qualified Code(s): J06.9 - Acute upper respiratory infection, unspecified Pharyngitis Qualifiers: Pharyngitis/tonsillitis etiology: unspecified etiology Qualified Code(s): J02.9 - Acute pharyngitis, unspecified Patient Disposition: Home, Self-Care Condition: Stable Instructions: Antibiotic Form, Pharyngitis (ED), Upper Respiratory Infection (ED) Additional Instructions: Strep test was negative in the clinic today. We will send strep for culture. 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 and let them know that you are sick if you are still having symptoms-they may need to cancel the cardioversion until you are feeling better Increase fluids and stay well hydrated Tylenol/motrin for pain/fever Flonase and OTC antihistamines as directed Vicks vapor rub to open sinuses Sinus rinses for congestion Cepacol spray, cough drops, throat lozenges, warm tea with honey/lemon, gargle salt water to soothe throat BRAT diet for diarrhea Clear liquids x 24 hours then advance as tolerated for nausea/vomiting Go to the ED if you develop a worsening in your condition- high fever not controlled by Tylenol or Motrin, dehydration, weakness, lethargy, shortness of breath, or chest pain. Follow up with your PCP in 3-5 days if symptoms persist. Patient Language: Mauritian Prescriptions: No Action metoprolol succinate 25 mg Tablet Extended Release 24 Hr 75 mg PO DAILY losartan-hydrochlorothiazide 100-12.5 mg Tablet 1 tablet PO DAILY cyanocobalamin (vitamin B-12) 1,000 mcg/mL solution 1,000 mcg subcut MONTHLY losartan 25 mg tablet 25 mg PO DAILY folic acid 1 mg tablet 1 mg PO DAILY allopurinol 300 mg tablet 150 mg PO DAILY cholecalciferol (vitamin D3) 50 mcg (2,000 unit) capsule 50 mcg PO WEEKLY flecainide 50 mg tablet 50 mg PO Q12H Xarelto 20 mg tablet 20 mg PO HS A [facility] Tablet 1 tablet PO DAILY acetaminophen [Tylenol] 325 mg Capsule 650 mg PO ONCE PRN (Reason: Pain) Rx Instructions: takes in am and hs at times Follow-up/Referrals: Reji,Sean Polanco APRN [Primary Care Provider] - Time of Disposition: 13:33 Quality NIHSS Nursing Documentation ED NIHSS nursing documentation: reviewed/agree
[2024-07-14 13:20] VITALS: BP 122/75; PULSE 82; RESP 16; TEMP 35.8; O2SAT 99
[2024-07-14 13:38] LABS: EDSTREPNEGPOS1 Negative (Negative)
== END 2024-07-14 13:37 | disposition home or self-care (01) ==
PROVIDERS: Emergency Provider Nurse Practitioner Family; PCP Nurse Practitioner Family
DX: J06.9 Acute upper respiratory infection, unspecified (principal); J02.9 Acute pharyngitis, unspecified; I48.91 Unspecified atrial fibrillation; M10.9 Gout, unspecified; Z79.01 Long term (current) use of anticoagulants
CPT/HCPCS: 87081; 87880; 99213; G0463

== ENCOUNTER 2024-10-01 18:49 | Emergency (ER) | payer OTHER, SELFPAY ==
--- NOTE | 2024-10-01 19:01 | ED.SKABFB ---
HPI - Skin/Abscess/Foreign Bdy General Chief complaint: Skin/Abscess/Foreign Body Stated complaint: rash arms/legs/chest,itching Time Seen by Provider: 10/01/24 19:05 Source: patient, RN notes reviewed and old records reviewed Mode of arrival: ambulatory Limitations: no limitations History of Present Illness HPI narrative: A 49-year-old female presents to the [facility] with a 2 week long rash to her arms and legs. States that she has some on her chest, describes it as being very itchy. Denies any new creams ointments lotions detergents. Has tried multiple treatments with no resolution. Onset (ago): week(s) (2) Related Data Home Medications ?Medication ?Instructions ?Recorded ?Confirmed ?Last Taken ?Type rivaroxaban 20 mg tablet (Xarelto) 20 mg PO HS 06/22/19 07/14/24 06/21/19 21:00 History cyanocobalamin (vitamin B-12) 1,000 mcg subcut MONTHLY 02/16/21 07/14/24 02/16/21 History 1,000 mcg/mL injection solution folic acid 1 mg tablet 1 mg PO DAILY 02/16/21 07/14/24 02/16/21 History losartan 25 mg tablet 25 mg PO DAILY 02/16/21 07/14/24 02/16/21 History acetaminophen 325 mg capsule 650 mg PO ONCE PRN Pain 02/17/21 07/14/24 02/16/21 History (Tylenol) pyffhoaf-hquvsgu-dzpi-lutein 1 tablet PO DAILY 02/17/21 07/14/24 02/16/21 History tablet ([facility] tablet) metoprolol succinate 25 mg 75 mg PO DAILY 09/07/21 10/01/24 Unknown History tablet,extended release 24 hr losartan 100 1 tablet PO DAILY 04/15/23 07/14/24 Unknown History mg-hydrochlorothiazide 12.5 mg tablet allopurinol 300 mg tablet 150 mg PO DAILY 07/14/24 07/14/24 Unknown History cholecalciferol (vitamin D3) 50 50 mcg PO WEEKLY 07/14/24 07/14/24 Unknown History mcg (2,000 unit) capsule flecainide 50 mg tablet 50 mg PO Q12H 07/14/24 07/14/24 Unknown History colchicine 0.6 mg tablet mg 10/01/24 Unknown History fluticasone propionate 50 intranasal 10/01/24 Unknown History mcg/actuation nasal spray,suspension losartan 50 mg tablet mg 10/01/24 Unknown History metoprolol tartrate 50 mg tablet mg 10/01/24 Unknown History Allergies Allergy/AdvReac Type Severity Reaction Status Date / Time lisinopril Allergy Mild Hives Verified 10/01/24 19:19 nifedipine Allergy Mild Hives / Verified 10/01/24 19:19 Red Face hydromorphone Allergy Unknown Hives / Verified 10/01/24 19:19 Red Face Review of Systems Review of Systems: All systems reviewed & are unremarkable except as noted in HPI and below Constitutional: Constitutional: Reports no additional constitutional complaints ENT: Reports system reviewed and no additional complaints, except as documented Cardiovascular: Cardiovascular: Reports no additional cardiovascular complaints, Denies chest pain and Denies dyspnea Respiratory: Respiratory: Reports no additional respiratory complaints, Denies chest congestion, Denies cough and Denies dyspnea Musculoskeletal: Musculoskeletal: Reports no additional musculoskeletal complaints Integumentary/Breasts: Skin/Breast: Reports as per HPI and Reports rash PMFSH Past Medical History Medical History Calcaneal bursitis, right Partial tear of right Achilles tendon Gout Hyponatremia A-fib Family History Family History Mother Ovarian cancer Heart disease Father Heart disease Hypertension Cerebrovascular accident Mother Hypertension Dementia Sibling Heart disease Hypertension ASVD (arteriosclerotic vascular disease) Social History Social History Smoking status: Never smoker Second hand tobacco smoke exposure: Yes Alcohol intake: former Substance use: never Gender identity (if verbalized by the patient): Female Spiritual care concerns: No Comments At the time of my signature, I reviewed and agree with the nursing past medical, surgical, social, and family history. There is no relevant family history pertinent to the patient complaint. Exam Const: General: cooperative, healthy appearing, comfortable, no acute distress, well developed, alert and well nourished Nutritional Appearance: well nourished Orientation/consciousness: patient oriented x3 Limitations: no limitations HENMT: Head: normal to inspection Mouth: Yes Normal oral and palatal mucosa present, Yes lip normal, Yes tongue normal and Yes moist mucous membranes Eyes: General: appearance normal, both eyes and all related structures Alignment and Position: alignment normal Neck: Neck: normal visual inspection, full ROM, no lymphadenopathy and no meningeal signs Chest: Chest palpation & inspection: normal inspection of the chest Resp: Effort & Inspection: normal respiratory effort and able to speak in complete sentences Cardio: Rate: regular rate Skin: General skin exam: normal color Other: Drained flaky rash noted to bilateral arms. No signs of cellulitis. No swelling. No ecchymosis. Neuro: General: patient oriented x3, gait normal, moves all extremities and no meningeal signs Cognition (Neuro): normal cognition Speech: normal speech Gait exam (Neuro): Normal gait present Extrem: General: normal to inspection, full ROM, capillary refill normal and normal gait Psych: Appearance: grossly normal and well kempt Mental Status: mental status grossly normal Speech and movement: Normal speech and movement present and Clear speech present Affect: normal affect Attitude: cooperative Course Course Level of Care: Express Care Visit Vital Signs Vital signs: Vital Signs Temperature 98.5 F 10/01/24 19:03 Pulse Rate 65 10/01/24 19:03 Respiratory Rate 16 10/01/24 19:03 Blood Pressure 153/83 H 10/01/24 19:03 Pulse Oximetry 99 10/01/24 19:03 Oxygen Delivery Room Air 10/01/24 19:03 Temperature 98.5 F 10/01/24 19:03 Pulse Rate 65 10/01/24 19:03 Respiratory Rate 16 10/01/24 19:03 Blood Pressure 153/83 H 10/01/24 19:03 Pulse Oximetry 99 10/01/24 19:03 Oxygen Delivery Room Air 10/01/24 19:03 Reviewed MDM - Skin/Abscess/Foreign Bdy MDM Narrative Medical decision making narrative: Patient sitting in exam room. Nontoxic, vitals stable except blood pressure mildly elevated. Patient presents with 2 weeks of a flaky dry itchy rash. Concerns for eczema versus dermatitis. Discussed yuyj-qap-[id number] treatments, prescribed prednisone Phone number for Dermatology given. Encourage patient to follow-up with primary care Patient is appropriate for outpatient treatment and follow-up Discharge instructions reviewed with patient, as well as provided in writing per nursing staff. The instructions also include specific and strict return/GO TO THE ER as well as f/u information. All questions have been answered, and the patient deny any further questions with discharge and discharge plan. Some parts of this dictation were generated by voice recognition software and may contain typographical and/or grammatical inaccuracies. Differential Diagnosis Differential diagnosis: Likely abscess of skin or subcutaneous tissue, viral exanthem, urticaria, allergic reaction to drug, cellulitis, eczema, impetigo and contact dermatitis Critical Care Time Critical Care Time Critical Care Time: No Discharge Plan Discharge Clinical Impression: Dermatitis Patient Disposition: Home, Self-Care Condition: Stable Instructions: Eczema (ED), Dermatitis (ED) Additional Instructions: The most important part of your care is follow up with Primary care provider. Take Benadryl 25- mg every 8 hours for itching Take Zyrtec every day Take Pepcid 20mg daily for 7 days Take the steroids starting in the morning Avoid hot showers, Take cool showers. Hot showers will make rashes worse After a cool shower apply a good moisturizing lotion such as Aveeno eczema or Aquaphor. Be sure to check to make sure it is fragrance free Apply cool compresses every 2-3 hours for 15 minutes Go to the ER for new or worsening symptoms such as shortness of breath. If you are having a hard time finding a physician please call our [facility] liaison at [phone]. [facility] dermatology [phone] This is located in [facility]. [phone] Patient Language: Citizen Of [place] Prescriptions: New prednisone 20 mg tablet See Rx Instructions .Route .COMPLEX Qty: 15 0RF Rx Instructions: Take 40 mg daily for 5 days, 20 mg daily for 5 days No Action metoprolol succinate 25 mg Tablet Extended Release 24 Hr 75 mg PO DAILY losartan-hydrochlorothiazide 100-12.5 mg Tablet 1 tablet PO DAILY cyanocobalamin (vitamin B-12) 1,000 mcg/mL solution 1,000 mcg subcut MONTHLY losartan 25 mg tablet 25 mg PO DAILY folic acid 1 mg tablet 1 mg PO DAILY metoprolol tartrate 50 mg tablet losartan 50 mg tablet colchicine 0.6 mg tablet fluticasone propionate 50 mcg/actuation spray,suspension INTRANASAL allopurinol 300 mg tablet 150 mg PO DAILY cholecalciferol (vitamin D3) 50 mcg (2,000 unit) capsule 50 mcg PO WEEKLY flecainide 50 mg tablet 50 mg PO Q12H Xarelto 20 mg tablet 20 mg PO HS [facility] Tablet 1 tablet PO DAILY acetaminophen [Tylenol] 325 mg Capsule 650 mg PO ONCE PRN (Reason: Pain) Rx Instructions: takes in am and hs at times Follow-up/Referrals: PHYSICIAN,GYMNASTICS INSTRUCTOR [Primary Care Provider] - Stand Alone Forms: Work/School Release IP Time of Disposition: 19:22
[2024-10-01 19:03] VITALS: BP 153/83; PULSE 65; RESP 16; TEMP 36.9; O2SAT 99
== END 2024-10-01 19:25 | disposition home or self-care (01) ==
PROVIDERS: Emergency Provider Nurse Practitioner
DX: L30.9 Dermatitis, unspecified (principal); I48.91 Unspecified atrial fibrillation; M10.9 Gout, unspecified
CPT/HCPCS: 99213; G0463